=== PATIENT | female | born 1980 | race Caucasian/White ===

== ENCOUNTER 2019-10-13 07:06 | Inpatient (IN) | payer SELFPAY ==
[2019-10-13] MEDS ORDERED: Famotidine 20 MG/2 ML SDV IVPUSH ONE (07:22)
[2019-10-13] MEDS ORDERED: Aspirin 81 MG Tab.Chew CHEW ONE (07:22)
[2019-10-13] MEDS ORDERED: Ticagrelor 90 MG Tab PO ONE (07:22)
--- NOTE | 2019-10-13 07:22 | EDM.PDOC ---
ED HPI GENERAL MEDICAL PROBLEM - General Chief Complaint: Chest Pain Stated Complaint: right chest pain Time Seen by Provider: 10/13/19 07:15 Source of Information: Reports: Patient, Old Records ([facility] EMR. No paper hospital chart available.), Significant Other History Limitations: Reports: No Limitations - History of Present Illness INITIAL COMMENTS - FREE TEXT/NARRATIVE: The patient was brought to the emergency room via private automobile by her significant other for evaluation of 10/10 bilateral sharp chest pain radiating to her mid back region and arms bilaterally including bilateral arm paresthesias. She does admit to smoking methamphetamines and a cigarette prior to the above onset of symptoms. The patient denies any heart flutter, dizziness , orthostasis, orthopnea, diaphoresis, recent decreased exercise tolerance, or any other anginal-type symptoms. No recent history of abdominal pain, heartburn , nausea, diarrhea, melena, gross hematochezia, or any food intolerance, including fatty foods, etc., although she does have problems with chronic constipation with last good bowel movement about 2 days ago in a small bowel movement yesterday evening. She denies any gross hematuria, colic, UTI symptoms. The patient also denies any recent fever, cough, wheezing, dyspnea, etc.. Onset: Today, Sudden Onset Date: 10/13/19 Onset Time: 06:00 Duration: Constant, Getting Worse Location: Reports: Chest, Back, Upper Extremity, Left, Upper Extremity, Right, Radiates to (As above). Denies: Head, Face, Neck Quality: Reports: Sharp Severity: Severe Improves with: Reports: None Worsens with: Reports: None Context: Reports: Other (As above). 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 [No Known Home Meds] 07/08/15 [History] Past Medical History HEENT History: Reports: None. Denies: Allergic Rhinitis, Cataract, Glaucoma, Hard of Hearing, Impaired Vision, Macular Degeneration, Retinal Detachment Cardiovascular History: Reports: Cardiomyopathy, Other (See Below). Denies: Afib, Aneurysm, Arrhythmia, Blood Clots/VTE/DVT, CAD, High Cholesterol, Hypertension, TN, Syncope Other Cardiovascular History: Patient does not know her cholesterol status. 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 Respiratory History: Reports: None. Denies: Asthma, Bronchitis, Recurrent, COPD , Intubation, Previous, PE, Pneumothorax, Sleep Apnea, TB Gastrointestinal History: Reports: Chronic Constipation. Denies: Bowel Obstruction, Celiac Disease, Cholelithiasis, Chronic Diarrhea, Fecal Incontinence, Gastritis, GERD, GI Bleed, Hepatitis, Inflammatory Bowel Disease, Irritable Bowel Syndrome, Jaundice, Pancreatitis, PUD Genitourinary History: Reports: None. 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 Full term without complications during pregnancies or deliveries Musculoskeletal History: Reports: Arthritis, Osteoarthritis. Denies: Back Pain , Chronic, Fracture, Gout, Neck Pain, Chronic, RA, SLE Neurological History: Denies: Cerebral Aneurysms, Concussion, CVA, Headaches, Chronic, Head Trauma, Migraines, MS, Neuropathy, Peripheral, Parkinson's, Seizure, TIA Psychiatric History: Reports: Addiction, Anxiety, Depression. Denies: Abuse, Victim of, ADD, ADHD, Psych Hospitalization(s), PTSD, Suicide Attempt, Suicidal Ideation Endocrine/Metabolic History: Denies: Diabetes, Gestational, Diabetes, Type I, Diabetes, Type II, Diabetes Mellitus, Type 3c, Hypothyroidism, IDDM Hematologic History: Reports: Anemia, Iron Deficiency. Denies: Blood Transfusion(s) Immunologic History: Denies: AIDS, HIV, SLE Oncologic (Cancer) History: Reports: None. Denies: Basal Cell Carcinoma, Breast , Cervix, Colon, Hodgkin's Lymphoma, Leukemia, Lymphoma, Malignant Melanoma, Non -Hodgkin's Lymphoma, Squamous Cell Carcinoma Dermatologic History: Reports: None. Denies: Eczema, Psoriasis - Infectious Disease History Infectious Disease History: Reports: Chicken Pox. Denies: C-Difficile, Measles , Meningitis, Mononucleosis, Mumps, Pertussis (Whooping Cough), Rubella, Scarlet Fever, Shingles, TB, VRE - Past Surgical History Head Surgeries/Procedures: Reports: None HEENT Surgical History: Reports: Oral Surgery, Other (See Below). Denies: Adenoidectomy, Eye Surgery, Laser Surgery, LASIK, Myringotomy w Tube(s), Naso- Sinus Surgery, Tonsillectomy Other HEENT Surgeries/Procedures: Multiple teeth extractions. Cardiovascular Surgical History: Reports: None. Denies: Varicose Respiratory Surgical History: Reports: None. Denies: Thoracentesis GI Surgical History: Denies: Appendectomy, Cholecystectomy, Colonoscopy, EGD, Hernia, Abdominal, Hernia, Inguinal, Hernia Repair/Other Female Surgical History: Reports: None. Denies: Breast Biopsy, D&C, Hysterectomy, Salpingo-Oophorectomy, Tubal Ligation Endocrine Surgical History: Reports: None. Denies: Thyroid Biopsy Neurological Surgical History: Reports: None. Denies: C-Spine, Discectomy, Laminectomy, Sacral Spine, Spinal Fusion, Thoracic Spine, Vertebroplasty Musculoskeletal Surgical History: Reports: None. Denies: Arthroscopic Procedure , Carpal Tunnel, Ganglion Cyst, Joint Replacement, ORIF, Shoulder Surgery Oncologic Surgical History: Reports: None Dermatological Surgical History: Reports: None - Past Imaging History Past Imaging History: Reports: None Social & Family History - Family History HEENT: Reports: Cataract, Other (See Below). Denies: Glaucoma, Macular Degeneration, Retinal Detachment Other HEENT Family History: Mother with glaucoma and cataracts. Maternal grandparents and maternal uncles 2 with cataracts. Cardiac: Reports: CAD, Cardiomyopathy, Heart Failure, Hypertension, TN, Other ( See Below). Denies: Afib, Aneurysm, Arrhythmia, Blood Clots/VTE/DVT, Heart Murmur, High Cholesterol, Syncope Other Cardiac Family History: Maternal grandmother with fatal TN in her 60s. Maternal uncle with CHF in his 50s. Hypertension in mother and maternal uncles 2. Respiratory: Reports: None. Denies: Asthma, COPD, PE, Pneumothorax, Sleep Apnea GI: Reports: Chronic Constipation, Other (See Below). Denies: Celiac Disease, Cholelithiasis, Colon Polyps, GERD, GI bleed, Inflammatory Bowel Disease, Irritable Bowel Syndrome, PUD Other GI Family History: Mother with constipation. : Reports: None. Denies: Renal Calculus, Renal Disease/Insufficiency OBGYN: Reports: None. Denies: Endometriosis, Fibroids, Recurrent Spontaneous Musculoskeletal: Reports: SLE. Denies: Gout, RA Other Musculoskeletal Family History: Mother with SLE. Neurological: Reports: CVA, Other (See Below). Denies: Alzheimers Disease, Cerebral Aneurysms, Dementia, Migraines, MS, Parkinson's, Seizure, TIA Other Neurological Family History: Maternal grandfather with CVA fatal in his 80s. Psychiatric: Reports: Anxiety, Depression, Other (See Below). Denies: Abuse, Victim of, ADD, ADHD, Psych Hospitalization(s), PTSD, Suicide Attempt Other Psychiatric Family History: Mother with anxiety depression disorder. Endocrine/Metabolic: Reports: None. Denies: Diabetes, Gestational, Diabetes, Type I, Diabetes, type II, Diabetes Mellitus, Type 3c, Hypothyroidism, IDDM Hematologic: Reports: SLE, Other (See Below). Denies: Anemia Other Hematologic Family History: Mother with SLE. Immunologic: Reports: SLE, Other (See Below). Denies: AIDS, HIV Other Immunologic Family History: Mother with SLE. Dermatologic: Reports: Eczema. Denies: Psoriasis Other Dermatologic Family History: Maternal uncle with eczema. Oncologic: Denies: Cervix, Colon, Hodgkin's Lymphoma, Leukemia, Lymphoma, Non- Hodgkin's Lymphoma, Ovarian, Skin, Uterine - Tobacco Use Smoking Status *Q: Current Every Day Smoker Tobacco Use Within Last Twelve Months: Cigarettes Years of Tobacco use: 21 Packs/Tins Daily: 2 Packs/Tins Daily Comment: Currently smoking cigars. Used Tobacco, but Quit: No Smoking Cessation Information Provided To Patient: Yes Second Hand Smoke Exposure: Yes Source of Second Hand Smoke Exposure: Significant other Second Hand Smoke Education Provided: Yes - Caffeine Use Caffeine Use: Reports: Soda (4 sodas per day). Denies: Coffee, Energy Drinks, Tea - Alcohol Use Alcohol Use History: Yes Days Per Week of Alcohol Use: 0 Number of Drinks Per Day Comment: History of alcohol abuse since age 18 with no use since February 2018. Alcohol Use in Last Twelve Months: No - Recreational Drug Use Recreational Drug Use: Yes Drug Use in Last 12 Months: Yes Recreational Drug Type: Reports: Amphetamines (Speed), Methamphetamine, Other ( see below). Denies: Heroin, LSD (Acid), Marijuana/Hashish, Oxycodone Other Recreational Drug Type: Amphetamine use started in her 20s. Recreational Drug Route: Reports: Inhaled - Living Situation & Occupation Living situation: Reports: with Significant Other (And maternal uncle and mother.) Occupation: Unemployed ED ROS GENERAL - Review of Systems Review Of Systems: Comprehensive ROS is negative, except as noted in HPI. ED EXAM, GENERAL - Physical Exam Exam: See Below Exam Limited By: No Limitations General Appearance: Alert, WD/WN, No Apparent Distress, Anxious (Moderate to severe) Eye Exam: Bilateral Eye: EOMI, Normal Fundi, Normal Inspection (No nystagmus), PERRL Ears: Normal External Exam, Normal Canal, Hearing Grossly Normal, Normal TMs Nose: Normal Inspection, Normal Mucosa, No Blood Throat/Mouth: Normal Lips, Normal Gums, Normal Oropharynx, Normal Voice, No Airway Compromise. No: Normal Teeth (Complete absent dentition with exception of one anterior right lower tooth broken into the gumline with no abscess present.), Dysphagia, Perioral Cyanosis Head: Atraumatic, Normocephalic. No: Facial Swelling, Facial Tenderness, Sinus Tenderness Neck: Normal Inspection, Supple, Non-Tender, Full Range of Motion. No: Carotid Bruit, Lymphadenopathy (L), Lymphadenopathy (R), Thyromegaly Respiratory/Chest: No Respiratory Distress, Lungs Clear, Normal Breath Sounds, No Accessory Muscle Use, Chest Non-Tender. No: Pleural Rub, Retractions Cardiovascular: Normal Peripheral Pulses, Regular Rate, Rhythm, No Edema, No Gallop, No JVD, No Murmur, No Rub. No: Gallop/S3, Gallop/S4, Friction Rub Peripheral Pulses: 2+: Radial (L), Radial (R), Dorsalis Pedis (L), Dorsalis Pedis (R) GI/Abdominal: Normal Bowel Sounds, Soft, Non-Tender, No Organomegaly, No Distention, No Abnormal Bruit, No Mass, Pelvis Stable. No: Guarding (Female) Exam: Deferred Rectal (Female) Exam: Deferred Back Exam: Normal Inspection, Full Range of Motion. No: CVA Tenderness (L), CVA Tenderness (R), Muscle Spasm Extremities: Normal Inspection, Normal Range of Motion, Non-Tender, No Pedal Edema, Normal Capillary Refill, Other (Hallux valgus bilaterally). No: Blata's Sign Neurological: Alert, Oriented, CN II-XII Intact, Normal Cognition, Normal Gait, Normal Reflexes (Negative Babinski's), No Motor/Sensory Deficits Psychiatric: Anxious (Moderate to severe), Depressed Mood (Moderate with adequate eye contact) Skin Exam: Warm, Dry, Intact, Normal Color, No Rash. No: Diaphoretic, Ecchymosis, Petechiae, Wound/Incision Lymphatic: No Adenopathy EKG INTERPRETATION EKG Date: 10/13/19 Time: 07:43 Rhythm: Other (Sinus bradycardia with occasional PAC) Rate (Beats/Min): 55 [place]: Normal (Neutral) P-Wave: Present QRS: Normal (0.09 seconds) ST-T: Normal (T wave inversion in lead V1) QT: Normal TX/PQ Interval: 0.11 seconds representing a short TX interval with no delta waves noted. Poor R-wave progression in the anterior leads. Comparison: NA - No Prior EKG EKG Interpretation Comments: 1. No acute ischemic changes 2. Sinus bradycardia with PACs 3. Short TX interval Course - Vital Signs Last Recorded V/S: Last Vital Signs Temp 36.3 C 10/13/19 07:12 Pulse 65 10/13/19 07:49 Resp 12 10/13/19 07:49 BP 170/88 H 10/13/19 07:49 Pulse Ox 100 10/13/19 07:49 Vital Signs - 24 hr 10/13/19 10/13/19 10/13/19 07:12 07:22 07:30 Temperature [ 36.3 C Temporal] Pulse, 90 Peripheral [ Left Pulse Oximetry] Respiratory 25 H Rate Blood Pressure 181/104 H Blood Pressure 181/104 H [Left Upper Arm ] O2 Sat by Pulse 100 Oximetry O2 Sat by Pulse 100 Oximetry [Room Air] 10/13/19 07:49 Temperature [ Temporal] Pulse, 65 Peripheral [ Left Pulse Oximetry] Respiratory 12 Rate Blood Pressure Blood Pressure 170/88 H [Left Upper Arm ] O2 Sat by Pulse 100 Oximetry O2 Sat by Pulse Oximetry [Room Air] - Orders/Labs/Meds Orders: Active Orders 24 hr Category Date Time Status Cardiac Monitoring [RC] . DIRECTED Care 10/13/19 07:22 Active EKG Documentation Completion [RC] ASDIRECTED Care 10/13/19 07:22 Active Oxygen Therapy, ED [RC] CONTINUOUS Care 10/13/19 07:22 Active Peripheral IV Care [RC] . DIRECTED Care 10/13/19 07:22 Active Pulse Oximetry [RC] CONTINUOUS Care 10/13/19 07:22 Active Up With Assistance [RC] PFP Care 10/13/19 07:22 Active Vital Signs [RC] PFP Care 10/13/19 07:22 Active Nothing per Oral Now Diet [DIET] Diet 10/13/19 Breakfast Active Chest 1V Frontal [CR] Stat Exams 10/13/19 07:22 Ordered LIPID PANEL [CHEM] Routine Lab 10/13/19 08:07 Ordered Nitroglycerin [Nitrostat] Med 10/13/19 07:23 Stat 0.4 mg SL ONETIME STA Sodium Chloride 0.9% [Saline Flush] Med 10/13/19 07:22 Active 10 ml FLUSH ASDIRECTED PRN Obtain Past Medical Record [OM.PC] Urgent Oth 10/13/19 07:22 Active Peripheral IV Insertion Adult [OM.PC] Stat Oth 10/13/19 07:22 Ordered Resuscitation Status Stat Resus Stat 10/13/19 07:22 Ordered Medication Orders Ceftriaxone Sodium 1 gm/ (Sodium Chloride) 100 mls @ 200 mls/hr IV ONETIME ONE Stop: 10/13/19 08:49 Last Admin: 10/13/19 08:29 Dose: 200 mls/hr Magnesium Sulfate 2 gm/ Premix 50 mls @ 50 mls/hr IV ONETIME ONE Stop: 10/13/19 09:19 Nitroglycerin (Nitrostat) 0.4 mg SL ONETIME STA Stop: 10/14/19 07:24 Last Admin: 10/13/19 07:30 Dose: 0.4 mg Sodium Chloride (Saline Flush) 10 ml FLUSH ASDIRECTED PRN PRN Reason: Keep Vein Open Last Admin: 10/13/19 08:11 Dose: 10 ml Labs: Laboratory Tests 10/13/19 10/13/19 10/13/19 Range/Units 07:24 07:40 07:40 WBC 14.7 H (4.0-10.2) K/uL RBC 4.68 (3.77-5.09) M/uL Hgb 11.7 D (11.7-15.5) g/dL Hct 35.9 (34.0-46.0) % MCV 76.7 L D (84.0-98.0) fL MCH 25.0 L (28.2-33.3) pg MCHC 32.6 (31.7-36.0) g/dL RDW 15.0 H (11.2-14.1) % Plt Count 612 H D (150-350) K/uL Neut % (Auto) 74.6 (45.0-80.0) % Lymph % (Auto) 21.5 (10.0-50.0) % [place] % (Auto) 3.1 (2.0-14.0) % Eos % (Auto) 0.6 (0.0-5.0) % Baso % (Auto) 0.2 (0.0-2.0) % Neut # (Auto) 10.97 H (1.40-7.00) K/uL Lymph # (Auto) 3.17 (0.50-3.50) K/uL [place] # (Auto) 0.46 (0.00-1.00) K/uL Eos # (Auto) 0.09 (0.00-0.50) K/uL Baso # (Auto) 0.03 (0.00-0.20) K/uL PT 10.8 (9.5-12.0) SEC INR 1.0 APTT 32.0 H (21.0-31.3) SEC D-Dimer, Quantitative 773 H (0-400) ng/mL Sodium (136-145) mmol/L Potassium (3.5-5.1) mmol/L Chloride (98-107) mmol/L Carbon Dioxide (21.0-32.0) mmol/L BUN (7-18) mg/dL Creatinine (0.51-1.17) mg/dL Est Cr Clr Drug Dosing mL/min Estimated GFR (MDRD) mL/min Glucose (74-106) mg/dL Hemoglobin A1c (4.3-5.7) % Lactic Acid (0.4-2.0) mmol/L Uric Acid (2.6-7.2) mg/dL Calcium (8.5-10.1) mg/dL Magnesium (1.8-2.4) mg/dL Total Bilirubin (0.2-1.0) mg/dL AST (15-37) U/L ALT (12-78) U/L Alkaline Phosphatase (46-116) IU/L Creatine Kinase (26-308) U/L Creatine Kinase Index (0.0-2.5) % CK-MB (CK-2) (0.00-3.60) ng/mL Troponin I (0.000-0.056) ng/mL NT-Pro-B Natriuret Pep (0-125) pg/mL Total Protein (6.4-8.2) g/dL Albumin (3.4-5.0) g/dL Cholesterol (100-200) mg/dL HDL Cholesterol (40-60) mg/dL TSH, Ultra Sensitive (0.358-3.740) mIU/mL HCG, Qual (NEGATIVE) Ethyl Alcohol (0.000-0.080) g/dL 10/13/19 10/13/19 10/13/19 Range/Units 07:40 07:40 07:40 WBC (4.0-10.2) K/uL RBC (3.77-5.09) M/uL Hgb (11.7-15.5) g/dL Hct (34.0-46.0) % MCV (84.0-98.0) fL MCH (28.2-33.3) pg MCHC (31.7-36.0) g/dL RDW (11.2-14.1) % Plt Count (150-350) K/uL Neut % (Auto) (45.0-80.0) % Lymph % (Auto) (10.0-50.0) % [place] % (Auto) (2.0-14.0) % Eos % (Auto) (0.0-5.0) % Baso % (Auto) (0.0-2.0) % Neut # (Auto) (1.40-7.00) K/uL Lymph # (Auto) (0.50-3.50) K/uL [place] # (Auto) (0.00-1.00) K/uL Eos # (Auto) (0.00-0.50) K/uL Baso # (Auto) (0.00-0.20) K/uL PT (9.5-12.0) SEC INR APTT (21.0-31.3) SEC D-Dimer, Quantitative (0-400) ng/mL Sodium 139 (136-145) mmol/L Potassium 2.8 L* (3.5-5.1) mmol/L Chloride 98 (98-107) mmol/L Carbon Dioxide 23.6 (21.0-32.0) mmol/L BUN 6 L (7-18) mg/dL Creatinine 0.61 (0.51-1.17) mg/dL Est Cr Clr Drug Dosing 99.46 mL/min Estimated GFR (MDRD) > 60 mL/min Glucose 177 H (74-106) mg/dL Hemoglobin A1c (4.3-5.7) % Lactic Acid 3.2 H (0.4-2.0) mmol/L Uric Acid 3.7 (2.6-7.2) mg/dL Calcium 9.4 (8.5-10.1) mg/dL Magnesium 1.3 L (1.8-2.4) mg/dL Total Bilirubin 0.2 (0.2-1.0) mg/dL AST 11 L (15-37) U/L ALT 11 L (12-78) U/L Alkaline Phosphatase 141 H (46-116) IU/L Creatine Kinase 32 (26-308) U/L Creatine Kinase Index 0.9 (0.0-2.5) % CK-MB (CK-2) 0.30 (0.00-3.60) ng/mL Troponin I 0.000 (0.000-0.056) ng/mL NT-Pro-B Natriuret Pep 202 H (0-125) pg/mL Total Protein 8.8 H (6.4-8.2) g/dL Albumin 3.5 (3.4-5.0) g/dL Cholesterol (100-200) mg/dL HDL Cholesterol (40-60) mg/dL TSH, Ultra Sensitive 0.174 L (0.358-3.740) mIU/mL HCG, Qual Negative (NEGATIVE) Ethyl Alcohol 0.000 (0.000-0.080) g/dL 12/25/19 12/25/19 Range/Units 07:40 07:40 WBC (4.0-10.2) K/uL RBC (3.77-5.09) M/uL Hgb (11.7-15.5) g/dL Hct (34.0-46.0) % MCV (84.0-98.0) fL MCH (28.2-33.3) pg MCHC (31.7-36.0) g/dL RDW (11.2-14.1) % Plt Count (150-350) K/uL Neut % (Auto) (45.0-80.0) % Lymph % (Auto) (10.0-50.0) % [place] % (Auto) (2.0-14.0) % Eos % (Auto) (0.0-5.0) % Baso % (Auto) (0.0-2.0) % Neut # (Auto) (1.40-7.00) K/uL Lymph # (Auto) (0.50-3.50) K/uL [place] # (Auto) (0.00-1.00) K/uL Eos # (Auto) (0.00-0.50) K/uL Baso # (Auto) (0.00-0.20) K/uL PT (9.5-12.0) SEC INR APTT (21.0-31.3) SEC D-Dimer, Quantitative (0-400) ng/mL Sodium (136-145) mmol/L Potassium (3.5-5.1) mmol/L Chloride (98-107) mmol/L Carbon Dioxide (21.0-32.0) mmol/L BUN (7-18) mg/dL Creatinine (0.51-1.17) mg/dL Est Cr Clr Drug Dosing mL/min Estimated GFR (MDRD) mL/min Glucose (74-106) mg/dL Hemoglobin A1c 5.3 (4.3-5.7) % Lactic Acid (0.4-2.0) mmol/L Uric Acid (2.6-7.2) mg/dL Calcium (8.5-10.1) mg/dL Magnesium (1.8-2.4) mg/dL Total Bilirubin (0.2-1.0) mg/dL AST (15-37) U/L ALT (12-78) U/L Alkaline Phosphatase (46-116) IU/L Creatine Kinase (26-308) U/L Creatine Kinase Index (0.0-2.5) % CK-MB (CK-2) (0.00-3.60) ng/mL Troponin I (0.000-0.056) ng/mL NT-Pro-B Natriuret Pep (0-125) pg/mL Total Protein (6.4-8.2) g/dL Albumin (3.4-5.0) g/dL Cholesterol 202 H (100-200) mg/dL HDL Cholesterol 38 L (40-60) mg/dL TSH, Ultra Sensitive (0.358-3.740) mIU/mL HCG, Qual (NEGATIVE) Ethyl Alcohol (0.000-0.080) g/dL Meds: Medications Generic Name Dose Route Start Last Admin Trade Name Freq PRN Reason Stop Dose Admin Ceftriaxone Sodium 1 gm/ 100 mls @ 200 mls/hr 10/13/19 08:20 10/13/19 08:29 Sodium Chloride IV 10/13/19 08:49 200 mls/hr ONETIME ONE Administration Magnesium Sulfate 2 gm/ Premix 50 mls @ 50 mls/hr 10/13/19 08:20 IV 10/13/19 09:19 ONETIME ONE Nitroglycerin 0.4 mg 10/13/19 07:23 10/13/19 07:30 Nitrostat SL 10/14/19 07:24 0.4 mg ONETIME STA Administration Sodium Chloride 10 ml 10/13/19 07:22 10/13/19 08:11 Saline Flush FLUSH 10 ml ASDIRECTED PRN Administration Keep Vein Open Discontinued Medications Generic Name Dose Route Start Last Admin Trade Name Freq PRN Reason Stop Dose Admin Aspirin 324 mg 10/13/19 07:22 10/13/19 07:30 Aspirin CHEW 10/13/19 07:23 324 mg ONETIME ONE Administration Famotidine 40 mg 10/13/19 07:22 10/13/19 07:39 Pepcid IVPUSH 10/13/19 07:23 40 mg ONETIME ONE Administration Iopamidol 100 ml 10/13/19 08:33 Isovue-370 (76%) IVPUSH 10/13/19 08:34 ONETIME STA Lorazepam 0.5 mg 10/13/19 07:23 10/13/19 07:31 Ativan IVPUSH 10/13/19 07:24 0.5 mg ONETIME ONE Administration Magnesium Citrate 0 ml 10/13/19 08:22 10/13/19 08:29 Citrate Of Magnesia PO 10/13/19 08:23 296 ml ONETIME ONE Administration Morphine Sulfate 2 mg 10/13/19 08:00 10/13/19 08:03 Morphine IVPUSH 10/13/19 08:01 2 mg ONETIME ONE Administration Ondansetron HCl 4 mg 10/13/19 08:00 10/13/19 08:03 Zofran IVPUSH 10/13/19 08:01 4 mg ONETIME ONE Administration Polyethylene Glycol 17 gm 10/13/19 08:22 10/13/19 08:30 Miralax PO 10/13/19 08:23 17 gm ONETIME ONE Administration Potassium Chloride 40 meq 10/13/19 08:21 10/13/19 08:29 Klor-Con M20 PO 10/13/19 08:22 40 meq ONETIME ONE Administration Ticagrelor 180 mg 10/13/19 07:22 10/13/19 07:31 Brilinta PO 10/13/19 07:23 180 mg ONETIME ONE Administration - Radiology Interpretation Free Text/Narrative:: monitor technician shows sinus rhythm averaging in the 60s to 70s with pulses ranging in the 50s to low 100s with anxiety component. Note occasional PACs and PVCs. Chest x-ray, portable, shows borderline pulmonary obstructive disease with mild prominence of the proximal aortic arch but no cardiomegaly, CHF, pulmonary infiltrates, pneumothorax, etc. Note moderate bowel gaseous distention from limited view with no evidence of free air or fluid levels. Departure - Departure Time of Disposition: 08:35 Disposition: Still A Patient 30 Condition: Good Clinical Impression: Chest pain, PAC (premature atrial contraction), PVCs (premature ventricular contractions), Tobacco abuse counseling, Illicit drug use, continuous, Osteoarthritis, Mixed anxiety depressive disorder, Constipation, Hypokalemia, Hyperglycemia, Hypomagnesemia, D-dimer, elevated, Elevated lactic acid level, Elevated blood pressure reading Sepsis Event Note - Evaluation Sepsis Screening Result: No Definite Risk - Focused Exam Vital Signs: Vital Signs Temp Pulse Resp BP BP Pulse Ox Pulse Ox 10/13/19 07:49 65 12 170/88 H 100 10/13/19 07:30 181/104 H 10/13/19 07:22 100 10/13/19 07:12 36.3 C 90 25 H 181/104 H 100 Date Exam was Performed: 10/13/19 Time Exam was Performed: 08:34 - Problem List & Annotations (1) Chest pain SNOMED Code(s): 34883435 Code(s): R07.9 - CHEST PAIN, UNSPECIFIED Status: Acute Priority: High Current Visit: No Onset Date: 10/13/19 Annotation/Comment:: Chest pain protocol initiated in the emergency room. Note strong anxiety component to patient's symptoms. Initiate standard rule out TN orders with cardiology consultation depending on her clinical course. Dr. Armando assumes care later this morning. 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 Qualifiers: Chest pain type: precordial pain Qualified Code(s): R07.2 - Precordial pain (2) Illicit drug use, continuous SNOMED Code(s): 283013710 Code(s): F19.90 - OTHER PSYCHOACTIVE SUBSTANCE USE, UNSPECIFIED, UNCOMPLICATED Status: Chronic Priority: Medium Current Visit: No Annotation/Comment:: Note methamphetamine use earlier this morning with previous use about 6 months ago per history from the patient and her significant other. Consider referral for psychiatric treatment, including drug rehabilitation program, etc. (3) Mixed anxiety depressive disorder SNOMED Code(s): 040482877 Code(s): F41.8 - OTHER SPECIFIED ANXIETY DISORDERS Status: Chronic Priority: High Current Visit: No Annotation/Comment:: Poor control based on today's evaluation. Increased stressors today secondary to her son spending the holidays with her ex-. Note previous history of alcohol abuse with current illicit drug use. IV Ativan given in the emergency room. Ativan should likely not be given at discharge secondary to patient's substance abuse history as above. (4) Osteoarthritis SNOMED Code(s): 750973560 Code(s): M19.90 - UNSPECIFIED OSTEOARTHRITIS, UNSPECIFIED SITE Status: Chronic Priority: Medium Current Visit: No Annotation/Comment:: Stable moderate by history Qualifiers: Osteoarthritis location: multiple joints Osteoarthritis type: primary Qualified Code(s): M15.0 - Primary generalized (osteo)arthritis (5) PAC (premature atrial contraction) SNOMED Code(s): 767642838 Code(s): I49.1 - ATRIAL PREMATURE DEPOLARIZATION Status: Acute Priority: High Current Visit: No Onset Date: 10/13/19 Annotation/Comment:: Observe for now. Note no beta blockers given during emergency room care. Note sinus bradycardia and current hypokalemia. (6) PVCs (premature ventricular contractions) SNOMED Code(s): 54948123 Code(s): I49.3 - VENTRICULAR PREMATURE DEPOLARIZATION Status: Acute Priority: High Current Visit: No Onset Date: 10/13/19 Annotation/Comment: : As above. (7) Tobacco abuse counseling SNOMED Code(s): 893128034, 836442267, 243805719 Code(s): Z71.6 - TOBACCO ABUSE COUNSELING Status: Chronic Priority: Medium Current Visit: No Annotation/Comment:: The patient and her were strongly encouraged to discontinue tobacco use with tobacco cessation information to be provided at discharge. (8) Constipation SNOMED Code(s): 18259799 Code(s): K59.00 - CONSTIPATION, UNSPECIFIED Status: Acute Priority: Medium Current Visit: No Annotation/Comment:: Long history of constipation. Note significant bowel gas and today's x-ray. Continue abdominal x-rays depending on her clinical course. Magnesium citrate and MiraLAX given in the emergency room. Qualifiers: Constipation type: slow transit constipation Qualified Code(s): K59.01 - Slow transit constipation (9) Hypokalemia SNOMED Code(s): 11461399 Code(s): E87.6 - HYPOKALEMIA Status: Acute Priority: High Current Visit : No Onset Date: 10/13/19 Annotation/Comment:: Potassium chloride initiated in the emergency room. Note that IV Pepcid was given as GI prophylaxis early after patient's arrival. Continue potassium supplementation during hospitalization especially in light of required MiraLAX and potassium citrate as below. No recent diarrhea, emesis, etc. by patient history. (10) D-dimer, elevated SNOMED Code(s): 678077589 Code(s): R79.89 - OTHER SPECIFIED ABNORMAL FINDINGS OF BLOOD CHEMISTRY Status: Acute Priority: High Current Visit: Yes Onset Date: 10/13/19 Annotation/Comment:: CTA of the chest ordered using PE protocol with results pending at time of transfer patient's care to Dr. Armando. Consider venous Doppler studies of the lower extremities prior to discharge. (11) Elevated blood pressure reading SNOMED Code(s): 37306862 Code(s): R03.0 - ELEVATED BLOOD-PRESSURE READING, W/O DIAGNOSIS OF HTN Status: Acute Priority: High Current Visit: Yes Onset Date: 10/13/19 Annotation/Comment:: Previous history of hypertension. Anxiety component. Continue to observe closely during this hospitalization. (12) Hyperglycemia SNOMED Code(s): 99590184 Code(s): R73.9 - HYPERGLYCEMIA, UNSPECIFIED Status: Acute Priority: Medium Current Visit: Yes Onset Date: 10/13/19 Annotation/Comment:: Nonfasting with the patient only having soda this morning. Glycosylated hemoglobin and fasting lipid profile were drawn in the emergency room. (13) Hypomagnesemia SNOMED Code(s): 867666618 Code(s): E83.42 - HYPOMAGNESEMIA Status: Acute Priority: High Current Visit: Yes Onset Date: 10/13/19 Annotation/Comment:: Initiated magnesium sulfate IV infusion in the emergency room with further IV and/or oral supplementation depending on her clinical course. (14) Elevated lactic acid level SNOMED Code(s): 9717307 Code(s): R79.89 - OTHER SPECIFIED ABNORMAL FINDINGS OF BLOOD CHEMISTRY Status: Acute Priority: High Current Visit: Yes Onset Date: 10/13/19 Annotation/Comment:: No clinical evidence of sepsis. Recommend repeating lactic acid level in 3 hours. IV Rocephin initiated in the emergency room. Attempt to obtain UA with culture and sensitivity. Initiate IV fluids depending on her clinical course. No hypotension, etc. - Problem List Review Problem List Initiated/Reviewed/Updated: Yes - My Orders Last 24 Hours: My Active Orders 10/13/19 07:22 Cardiac Monitoring [RC] . DIRECTED EKG Documentation Completion [RC] ASDIRECTED Oxygen Therapy, ED [RC] CONTINUOUS Peripheral IV Care [RC] . DIRECTED Pulse Oximetry [RC] CONTINUOUS Up With Assistance [RC] PFP Vital Signs [RC] PFP Chest 1V Frontal [CR] Stat Sodium Chloride 0.9% [Saline Flush] 10 ml FLUSH ASDIRECTED PRN Obtain Past Medical Record [OM.PC] Urgent Peripheral IV Insertion Adult [OM.PC] Stat Resuscitation Status Stat 10/13/19 07:23 Nitroglycerin [Nitrostat] 0.4 mg SL ONETIME STA 10/13/19 08:07 LIPID PANEL [CHEM] Routine 10/13/19 Breakfast Nothing per Oral Now Diet [DIET] - Assessment/Plan Admission H&P: Please use this note as an admission H&P Last 24 Hours: My Active Orders 10/13/19 07:22 Cardiac Monitoring [RC] . DIRECTED EKG Documentation Completion [RC] ASDIRECTED Oxygen Therapy, ED [RC] CONTINUOUS Peripheral IV Care [RC] . DIRECTED Pulse Oximetry [RC] CONTINUOUS Up With Assistance [RC] PFP Vital Signs [RC] PFP Chest 1V Frontal [CR] Stat Sodium Chloride 0.9% [Saline Flush] 10 ml FLUSH ASDIRECTED PRN Obtain Past Medical Record [OM.PC] Urgent Peripheral IV Insertion Adult [OM.PC] Stat Resuscitation Status Stat 10/13/19 07:23 Nitroglycerin [Nitrostat] 0.4 mg SL ONETIME STA 10/13/19 08:07 LIPID PANEL [CHEM] Routine 10/13/19 Breakfast Nothing per Oral Now Diet [DIET] Assessment:: As above. Plan: As above. Extensive precautions were given to the patient and her significant other, who are in agreement with the treatment plan. The patient's condition is stable enough for observation status and general supervision. Patient care was transferred to Dr. Tr hsieh prior to planned placement of the patient in observation status.
[2019-10-13] MEDS ORDERED: LORazepam 2 MG/ML SDV IVPUSH ONE (07:23)
[2019-10-13] MEDS ORDERED: Nitroglycerin 0.4 MG Tab.SL SL STA (07:23)
[2019-10-13] MEDS ORDERED: Ondansetron 4 MG/2 ML SDV IVPUSH ONE (08:00)
[2019-10-13] MEDS ORDERED: Morphine 2 MG/ML Syringe IVPUSH ONE (08:00)
[2019-10-13 08:09] LABS: CHLORIDE,CL 98 mmol/L (98-107); SODIUM,NA 139 mmol/L (136-145)
[2019-10-13] MEDS: Sodium Chloride 0.9% 10 ML Syringe FLUSH PRN ×2 (08:11→10:26)
[2019-10-13] MEDS ORDERED: cefTRIAXone 1 GM in Sodium Chloride 0.9% 100 ML IV ONE (08:20)
[2019-10-13] MEDS ORDERED: Magnesium Sulfate/Water 2 GM in Premix Bag 1 BAG IV ONE (08:20)
[2019-10-13] MEDS ORDERED: Potassium Chloride 20 MEQ Tab.ER PO ONE ×3 (08:21→15:00)
[2019-10-13] MEDS ORDERED: Magnesium Citrate Solution 296 ML Bottle PO ONE (08:22)
[2019-10-13] MEDS ORDERED: Polyethylene Glycol 3350 Powder 17 GM Packet PO ONE (08:22)
[2019-10-13 08:29] LABS: HEMOGLOBIN A1C 5.3 % (4.3-5.7)
[2019-10-13] MEDS ORDERED: Iopamidol 755 Mg/ML 100 ML Bottle IVPUSH STA (08:33)
[2019-10-13] MEDS ORDERED: Ondansetron 4 MG/2 ML SDV IVPUSH PRN (09:31)
[2019-10-13] MEDS ORDERED: LORazepam 2 MG/ML SDV IV PRN (09:31)
[2019-10-13] MEDS ORDERED: Sodium Chloride 0.9% 1,000 ML IV SCH (09:45)
[2019-10-13 10:02] LABS: BARBITURATE SCREEN,URINE NEGATIVE (NEGATIVE); BENZODIAZEPINES SCREEN,URINE NEGATIVE (NEGATIVE); EDDP,URINE SCREEN NEGATIVE (NEGATIVE); TCA SCREEN,URINE NEGATIVE (NEGATIVE); THC SCREEN,URINE 50 NG/ML NEGATIVE (NEGATIVE)
[2019-10-13] MEDS: Acetaminophen 325 MG Tab PO PRN (12:06)
[2019-10-13 17:10] LABS: CHLORIDE,CL 104 mmol/L (98-107); SODIUM,NA 142 mmol/L (136-145)
[2019-10-13] MEDS ORDERED: Sodium Chloride 0.9% 1,000 ML IV ONE (19:25)
[2019-10-13] MEDS: Sulfamethoxazole/Trimethoprim 800-160 MG Tab PO SCH (20:07)
[2019-10-14] MEDS: cefTRIAXone 1 GM in Sodium Chloride 0.9% 100 ML IV SCH (07:34)
[2019-10-14] MEDS: Sulfamethoxazole/Trimethoprim 800-160 MG Tab PO SCH ×2 (07:34→17:10)
[2019-10-14 08:15] LABS: CHLORIDE,CL 102 mmol/L (98-107); SODIUM,NA 141 mmol/L (136-145)
[2019-10-14] MEDS: Enoxaparin 40 MG/0.4 ML Syringe SUBCUT SCH (11:36)
[2019-10-14] MEDS: Nicotine 21 MG/24 Hr Patch TRDERM SCH (11:36)
[2019-10-14] MEDS ORDERED: Sodium Chloride 0.9% 1,000 ML IV ONE (13:12)
--- NOTE | 2019-10-14 13:24 | PCM.PN ---
- General Info Date of Service: 10/14/19 Admission Dx/Problem (Free Text): Chest pain/low K and Mg. Found to have UTI after admission to floor. Recent Meth ingestion. Subjective Update: Patient feels overall better today. Intermittent bilateral low back pain. Afebrile. - Review of Systems General: Reports: No Symptoms. Denies: Fever, Fatigue, Malaise, Chills, Night Sweats HEENT: Reports: No Symptoms Pulmonary: Reports: No Symptoms. Denies: Shortness of Breath, Pleuritic Chest Pain, Cough, Sputum, Hemoptysis, Wheezing Cardiovascular: Reports: No Symptoms. Denies: Chest Pain, Palpitations, Lightheadedness Gastrointestinal: Reports: No Symptoms. Denies: Abdominal Pain, Diarrhea, Nausea, Vomiting Genitourinary: Reports: No Symptoms Musculoskeletal: Reports: Back Pain Skin: Reports: No Symptoms Neurological: Reports: No Symptoms Psychiatric: Reports: No Symptoms - Patient Data Vitals - Most Recent: Last Vital Signs Temp 36.6 C 10/14/19 11:03 Pulse 95 10/14/19 11:03 Resp 18 10/14/19 11:03 BP 149/99 H 10/14/19 11:03 Pulse Ox 98 10/14/19 11:03 Weight - Most Recent: 55.61 kg I&O - Last 24 Hours: Intake & Output 10/13/19 10/14/19 10/14/19 22:59 06:59 14:59 Intake Total 1745 2225 1720 Output Total 650 1800 1450 Balance 1095 425 270 Lab Results Last 24 Hours: Laboratory Results - last 24 hr 10/13/19 10/13/19 10/14/19 Range/Units 07:40 16:50 07:20 WBC (4.0-10.2) K/uL RBC (3.77-5.09) M/uL Hgb (11.7-15.5) g/dL Hct (34.0-46.0) % MCV (84.0-98.0) fL MCH (28.2-33.3) pg MCHC (31.7-36.0) g/dL RDW (11.2-14.1) % Plt Count (150-350) K/uL Neut % (Auto) (45.0-80.0) % Lymph % (Auto) (10.0-50.0) % [place] % (Auto) (2.0-14.0) % Eos % (Auto) (0.0-5.0) % Baso % (Auto) (0.0-2.0) % Neut # (Auto) (1.40-7.00) K/uL Lymph # (Auto) (0.50-3.50) K/uL [place] # (Auto) (0.00-1.00) K/uL Eos # (Auto) (0.00-0.50) K/uL Baso # (Auto) (0.00-0.20) K/uL Sodium 142 141 (136-145) mmol/L Potassium 3.7 3.8 (3.5-5.1) mmol/L Chloride 104 102 (98-107) mmol/L Carbon Dioxide 27.5 25.6 (21.0-32.0) mmol/L BUN 4 L 3 L (7-18) mg/dL Creatinine 0.57 0.64 (0.51-1.17) mg/dL Est Cr Clr Drug Dosing 116.69 103.93 mL/min Estimated GFR (MDRD) > 60 > 60 mL/min Glucose 113 H 87 (74-106) mg/dL Lactic Acid (0.4-2.0) mmol/L Calcium 8.1 L 8.9 (8.5-10.1) mg/dL Magnesium 2.9 H 2.2 (1.8-2.4) mg/dL Total Bilirubin 0.1 L (0.2-1.0) mg/dL AST 13 L (15-37) U/L ALT 11 L (12-78) U/L Alkaline Phosphatase 132 H (46-116) IU/L Troponin I 0.000 (0.000-0.056) ng/mL Total Protein 7.6 (6.4-8.2) g/dL Albumin 3.0 L (3.4-5.0) g/dL Triglycerides 97 (30-150) mg/dL LDL Cholesterol, Calc 145 H (0-100) mg/dL 10/14/19 10/14/19 Range/Units 07:20 07:20 WBC 9.5 (4.0-10.2) K/uL RBC 4.52 (3.77-5.09) M/uL Hgb 11.3 L (11.7-15.5) g/dL Hct 35.2 (34.0-46.0) % MCV 77.9 L (84.0-98.0) fL MCH 25.0 L (28.2-33.3) pg MCHC 32.1 (31.7-36.0) g/dL RDW 15.3 H (11.2-14.1) % Plt Count 656 H (150-350) K/uL Neut % (Auto) 63.5 (45.0-80.0) % Lymph % (Auto) 30.4 (10.0-50.0) % [place] % (Auto) 4.3 (2.0-14.0) % Eos % (Auto) 1.7 (0.0-5.0) % Baso % (Auto) 0.1 (0.0-2.0) % Neut # (Auto) 6.05 (1.40-7.00) K/uL Lymph # (Auto) 2.89 (0.50-3.50) K/uL [place] # (Auto) 0.41 (0.00-1.00) K/uL Eos # (Auto) 0.16 (0.00-0.50) K/uL Baso # (Auto) 0.01 (0.00-0.20) K/uL Sodium (136-145) mmol/L Potassium (3.5-5.1) mmol/L Chloride (98-107) mmol/L Carbon Dioxide (21.0-32.0) mmol/L BUN (7-18) mg/dL Creatinine (0.51-1.17) mg/dL Est Cr Clr Drug Dosing mL/min Estimated GFR (MDRD) mL/min Glucose (74-106) mg/dL Lactic Acid 4.9 H (0.4-2.0) mmol/L Calcium (8.5-10.1) mg/dL Magnesium (1.8-2.4) mg/dL Total Bilirubin (0.2-1.0) mg/dL AST (15-37) U/L ALT (12-78) U/L Alkaline Phosphatase (46-116) IU/L Troponin I (0.000-0.056) ng/mL Total Protein (6.4-8.2) g/dL Albumin (3.4-5.0) g/dL Triglycerides (30-150) mg/dL LDL Cholesterol, Calc (0-100) mg/dL Senthil Results Last 24 Hours: Microbiology 10/13/19 09:42 Urine Culture - Final Urine, Clean Catch Med Orders - Current: Current Medications Acetaminophen (Tylenol) 650 mg PO Q4H PRN PRN Reason: Pain (Mild 1-3)/fever Last Admin: 10/13/19 12:06 Dose: 650 mg Enoxaparin Sodium (Lovenox) 40 mg SUBCUT DAILY [facility] Last Admin: 10/14/19 11:36 Dose: 40 mg Ceftriaxone Sodium 1 gm/ (Sodium Chloride) 100 mls @ 200 mls/hr IV DAILY [facility] Last Admin: 10/14/19 07:34 Dose: 200 mls/hr Sodium Chloride (Normal Saline) 1,000 mls @ 200 mls/hr IV .BOLUS ONE Stop: 10/14/19 18:11 Lorazepam (Ativan) 1 mg IV Q6H PRN PRN Reason: Nausea/Vomiting Last Admin: 10/13/19 12:06 Dose: 1 mg Metoprolol Succinate (Toprol Xl) 25 mg PO DAILY [facility] Nicotine (Habitrol) 21 mg TRDERM DAILY [facility] Last Admin: 10/14/19 11:36 Dose: 21 mg Ondansetron HCl (Zofran) 4 mg IVPUSH Q6H PRN PRN Reason: Nausea/Vomiting Sodium Chloride (Saline Flush) 10 ml FLUSH ASDIRECTED PRN PRN Reason: Keep Vein Open Last Admin: 10/13/19 10:26 Dose: 10 ml Trimethoprim/Sulfamethoxazole (Septra Ds) 1 tab PO BID [facility] Last Admin: 10/14/19 07:34 Dose: 1 tab Discontinued Medications Aspirin (Aspirin) 324 mg CHEW ONETIME ONE Stop: 10/13/19 07:23 Last Admin: 10/13/19 07:30 Dose: 324 mg Famotidine (Pepcid) 40 mg IVPUSH ONETIME ONE Stop: 10/13/19 07:23 Last Admin: 10/13/19 07:39 Dose: 40 mg Ceftriaxone Sodium 1 gm/ (Sodium Chloride) 100 mls @ 200 mls/hr IV ONETIME ONE Stop: 10/13/19 08:49 Last Admin: 10/13/19 08:29 Dose: 200 mls/hr Magnesium Sulfate 2 gm/ Premix 50 mls @ 50 mls/hr IV ONETIME ONE Stop: 10/13/19 09:19 Last Admin: 10/13/19 09:06 Dose: 50 mls/hr Magnesium Sulfate/Dextrose 1 (gm/ Premix) 100 mls @ 100 mls/hr IV ONETIME ONE Stop: 10/13/19 11:59 Last Admin: 10/13/19 10:25 Dose: 100 mls/hr Magnesium Sulfate/Dextrose 1 (gm/ Premix) 100 mls @ 100 mls/hr IV ONETIME ONE Stop: 10/13/19 14:59 Last Admin: 10/13/19 14:58 Dose: 100 mls/hr Sodium Chloride (Normal Saline) 1,000 mls @ 125 mls/hr IV ASDIRECTED TRAVIS Stop: 10/14/19 00:36 Last Admin: 10/13/19 10:25 Dose: 125 mls/hr Sodium Chloride (Normal Saline) 1,000 mls @ 999 mls/hr IV .BOLUS ONE Stop: 10/13/19 20:25 Last Admin: 10/13/19 20:07 Dose: 999 mls/hr Iopamidol (Isovue-370 (76%)) 100 ml IVPUSH ONETIME STA Stop: 10/13/19 08:34 Last Admin: 10/13/19 09:06 Dose: 100 ml Lorazepam (Ativan) 0.5 mg IVPUSH ONETIME ONE Stop: 10/13/19 07:24 Last Admin: 10/13/19 07:31 Dose: 0.5 mg Magnesium Citrate (Citrate Of Magnesia) 0 ml PO ONETIME ONE Stop: 10/13/19 08:23 Last Admin: 10/13/19 08:29 Dose: 296 ml Morphine Sulfate (Morphine) 2 mg IVPUSH ONETIME ONE Stop: 10/13/19 08:01 Last Admin: 10/13/19 08:03 Dose: 2 mg Nitroglycerin (Nitrostat) 0.4 mg SL ONETIME STA Stop: 10/14/19 07:24 Last Admin: 10/13/19 07:30 Dose: 0.4 mg Ondansetron HCl (Zofran) 4 mg IVPUSH ONETIME ONE Stop: 10/13/19 08:01 Last Admin: 10/13/19 08:03 Dose: 4 mg Polyethylene Glycol (Miralax) 17 gm PO ONETIME ONE Stop: 10/13/19 08:23 Last Admin: 10/13/19 08:30 Dose: 17 gm Potassium Chloride (Klor-Con M20) 40 meq PO ONETIME ONE Stop: 10/13/19 08:22 Last Admin: 10/13/19 08:29 Dose: 40 meq Potassium Chloride (Klor-Con M20) 40 meq PO ONETIME ONE Stop: 10/13/19 10:31 Last Admin: 10/13/19 10:24 Dose: 40 meq Potassium Chloride (Klor-Con M20) 40 meq PO ONETIME ONE Stop: 10/13/19 15:01 Last Admin: 10/13/19 14:59 Dose: 40 meq Ticagrelor (Brilinta) 180 mg PO ONETIME ONE Stop: 10/13/19 07:23 Last Admin: 10/13/19 07:31 Dose: 180 mg - Exam General: Alert, Oriented, Cooperative, No Acute Distress HEENT: Pupils Equal, Pupils Reactive, EOMI, Mucous Membr. Moist/[place] Neck: Supple Lungs: Clear to Auscultation, Normal Respiratory Effort Cardiovascular: Regular Rate, Regular Rhythm GI/Abdominal Exam: Normal Bowel Sounds, Soft, Non-Tender, No Distention (Female) Exam: Deferred Back Exam: No: CVA Tenderness (L), CVA Tenderness (R), Muscle Spasm, Paraspinal Tenderness, Vertebral Tenderness Extremities: Normal Range of Motion, Non-Tender, Normal Capillary Refill Skin: Warm, Dry Neurological: No New Focal Deficit Psy/Mental Status: Alert, Normal Affect, Normal Mood EKG INTERPRETATION EKG Date: 10/14/19 Time: 07:07 Rhythm: NSR Rate (Beats/Min): 75 [place]: Normal P-Wave: Present QRS: Normal ST-T: Normal QT: Normal Sepsis Event Note - Evaluation Sepsis Screening Result: No Definite Risk - Focused Exam Vital Signs: Vital Signs Temp Pulse Resp BP Pulse Ox 10/14/19 11:03 36.6 C 95 18 149/99 H 98 10/14/19 07:08 36.8 C 62 17 139/83 97 Date Exam was Performed: 10/14/19 Time Exam was Performed: 14:49 - Problem List & Annotations (1) UTI (urinary tract infection) SNOMED Code(s): 62537475 Code(s): N39.0 - URINARY TRACT INFECTION, SITE NOT SPECIFIED Status: Acute Current Visit: Yes Qualifiers: Hematuria presence: with hematuria Annotation/Comment:: Patient not complaining of dysuria but noted to have semi- packed WBC in UA obtained after admission. UC requested. Did complain of intermittent low back pain overnight which is suggestive of possible pyelonephritis. No fevers. Was started on Rocephin in ER given elevated WBC and lactic acid. Will continue Rocephin and add Septra DS for better coverage of pyelo. Recheck UA in AM to see if infection is responding. (2) Chest pain SNOMED Code(s): 26270215 Code(s): R07.9 - CHEST PAIN, UNSPECIFIED Status: Acute Priority: High Current Visit: No Onset Date: 10/13/19 Qualifiers: Chest pain type: precordial pain Qualified Code(s): R07.2 - Precordial pain Annotation/Comment:: Chest pain protocol initiated in the emergency room. Note strong anxiety component to patient's symptoms and recent Meth use. Serial Troponins negative. No changes noted on EKGs performed yesterday and today. Telemetry unremarkable and eventually discontinued. 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 (3) Hypokalemia SNOMED Code(s): 79718887 Code(s): E87.6 - HYPOKALEMIA Status: Acute Priority: High Current Visit : No Onset Date: 10/13/19 Annotation/Comment:: Normalized. Potassium chloride initiated in the emergency room. Continuing daily monitoring of levels. No recent diarrhea, emesis, etc. by patient history. (4) Elevated lactic acid level SNOMED Code(s): 1741996 Code(s): R79.89 - OTHER SPECIFIED ABNORMAL FINDINGS OF BLOOD CHEMISTRY Status: Acute Priority: High Current Visit: Yes Onset Date: 10/13/19 Annotation/Comment:: No clinical evidence of sepsis. No hypotension noted. Found to have UTI with questionable pyelonephritis given low back pain complaints. Remains elevated today. WBC has improved. Afebrile. Will continue antibiotic coverage for UTI. Patient feels improved today. Recheck level tomorrow. (5) Hypomagnesemia SNOMED Code(s): 735341212 Code(s): E83.42 - HYPOMAGNESEMIA Status: Acute Priority: High Current Visit: Yes Onset Date: 10/13/19 Annotation/Comment:: Normalized after IV Mag supplementation. Will change to PO supplementation with continuation after discharge. (6) Elevated platelet count SNOMED Code(s): 136572547 Code(s): R79.89 - OTHER SPECIFIED ABNORMAL FINDINGS OF BLOOD CHEMISTRY Status: Acute Priority: Medium Current Visit: Yes Annotation/Comment:: Noted to have elevated platelets. This may be due to current infection. Will recommend follow up with a primary care provider after discharge to see if number normalizes. (7) D-dimer, elevated SNOMED Code(s): 184619810 Code(s): R79.89 - OTHER SPECIFIED ABNORMAL FINDINGS OF BLOOD CHEMISTRY Status: Acute Priority: High Current Visit: Yes Onset Date: 10/13/19 Annotation/Comment:: CTA of the chest ordered using PE negative. No complaint of pain/swelling/redness in legs. (8) Elevated blood pressure reading SNOMED Code(s): 61599768 Code(s): R03.0 - ELEVATED BLOOD-PRESSURE READING, W/O DIAGNOSIS OF HTN Status: Acute Priority: High Current Visit: Yes Onset Date: 10/13/19 Annotation/Comment:: Previous history of hypertension. Anxiety component. Continue to observe closely during this hospitalization. (9) Hyperglycemia SNOMED Code(s): 07256953 Code(s): R73.9 - HYPERGLYCEMIA, UNSPECIFIED Status: Acute Priority: Medium Current Visit: Yes Onset Date: 10/13/19 Annotation/Comment:: Improved blood sugar trend over last two days. Normal A1c. (10) Constipation SNOMED Code(s): 15478660 Code(s): K59.00 - CONSTIPATION, UNSPECIFIED Status: Acute Priority: Medium Current Visit: No Qualifiers: Constipation type: slow transit constipation Qualified Code(s): K59.01 - Slow transit constipation Annotation/Comment:: Long history of constipation. Note significant bowel gas and today's x-ray. Continue abdominal x-rays depending on her clinical course. Magnesium citrate and MiraLAX given in the emergency room. (11) PAC (premature atrial contraction) SNOMED Code(s): 289590781 Code(s): I49.1 - ATRIAL PREMATURE DEPOLARIZATION Status: Acute Priority: High Current Visit: No Onset Date: 10/13/19 Annotation/Comment:: Improved. (12) PVCs (premature ventricular contractions) SNOMED Code(s): 75693914 Code(s): I49.3 - VENTRICULAR PREMATURE DEPOLARIZATION Status: Acute Priority: High Current Visit: No Onset Date: 10/13/19 Annotation/Comment: : As above. (13) Illicit drug use, continuous SNOMED Code(s): 636698260 Code(s): F19.90 - OTHER PSYCHOACTIVE SUBSTANCE USE, UNSPECIFIED, UNCOMPLICATED Status: Chronic Priority: Medium Current Visit: No Annotation/Comment:: Note methamphetamine prior to presentation to ER. Case management visited with patient today to see how patient feels about the recent drug use and possible treatment options once discharged. Patient very vague in regards to the above. Consider referral for psychiatric treatment, including drug rehabilitation program, etc. (14) Mixed anxiety depressive disorder SNOMED Code(s): 862002827 Code(s): F41.8 - OTHER SPECIFIED ANXIETY DISORDERS Status: Chronic Priority: High Current Visit: No Annotation/Comment:: Improved. Increased stressors per patient secondary to her son spending the holidays with her ex- . Note previous history of alcohol abuse with current illicit drug use. IV Ativan given in the emergency room. Ativan should likely not be given at discharge secondary to patient's substance abuse history as above. (15) Osteoarthritis SNOMED Code(s): 922983392 Code(s): M19.90 - UNSPECIFIED OSTEOARTHRITIS, UNSPECIFIED SITE Status: Chronic Priority: Medium Current Visit: No Qualifiers: Osteoarthritis location: multiple joints Osteoarthritis type: primary Qualified Code(s): M15.0 - Primary generalized (osteo)arthritis Annotation/Comment:: Stable moderate by history (16) Tobacco abuse counseling SNOMED Code(s): 001245492, 800203637, 180639096 Code(s): Z71.6 - TOBACCO ABUSE COUNSELING Status: Chronic Priority: Medium Current Visit: No Annotation/Comment:: The patient and her were strongly encouraged to discontinue tobacco use with tobacco cessation information to be provided at discharge. - Problem List Review Problem List Initiated/Reviewed/Updated: Yes - My Orders Last 24 Hours: My Active Orders 10/13/19 19:30 Sulfamethoxazole/Trimethoprim [Septra DS] 1 tab PO BID 10/13/19 Dinner Regular Diet [DIET] 10/14/19 08:00 cefTRIAXone [Rocephin] 1 gm Sodium Chloride 0.9% [Normal Saline] 100 ml IV DAILY 10/14/19 11:15 Enoxaparin [Lovenox] 40 mg SUBCUT DAILY 10/14/19 11:30 Nicotine [Habitrol] 21 mg TRDERM DAILY 10/14/19 13:12 Sodium Chloride 0.9% [Normal Saline] 1,000 ml IV .BOLUS 10/14/19 13:15 Metoprolol Succinate [Toprol XL] 25 mg PO DAILY 10/15/19 05:11 IRON PNL (FE, TIBC, MARITA, %SAT) [REF] Routine UA W/MICROSCOPIC [URIN] AM 10/15/19 05:15 BASIC METABOLIC PANEL,BMP [CHEM] AM CBC WITH AUTO DIFF [HEME] AM - Assessment Assessment:: as above - Plan Plan:: as above. Changed from observation to inpatient today due to suspicion for pyelonephritis and continued elevation of lactic acid level. Anticipate 2 additional days of inpatient care in order to receive IV antibiotic coverage for UTI. This will provide for better coverage of the infection as there are concerns around patient's compliance with outpatient antibiotics after discharge given her recent drug use/poor decision making.
[2019-10-14] MEDS: Metoprolol Succinate 25 MG Tab.ER PO SCH (13:27)
[2019-10-14] MEDS: Potassium Chloride 10 MEQ Tab.ER PO SCH (15:45)
[2019-10-14] MEDS: Magnesium Oxide 400 MG Tab PO SCH (15:45)
[2019-10-14] MEDS: Acetaminophen 325 MG Tab PO PRN (17:10)
--- NOTE | 2019-10-15 07:01 | PCM.PN ---
- General Info Date of Service: 10/15/19 Admission Dx/Problem (Free Text): Chest pain/low K and Mg. Found to have UTI after admission to floor. Recent Meth ingestion. Subjective Update: Patient has no new complaints. Back pain improved. Currently pain-free. Feels tired. Functional Status: Reports: Pain Controlled, Tolerating Diet, Ambulating, Urinating. Denies: New Symptoms - Review of Systems General: Reports: Fatigue. Denies: Fever, Malaise, Chills, Night Sweats HEENT: Reports: No Symptoms Pulmonary: Reports: No Symptoms. Denies: Cough Cardiovascular: Reports: No Symptoms. Denies: Chest Pain Gastrointestinal: Reports: No Symptoms. Denies: Abdominal Pain, Constipation, Diarrhea, Melena, Nausea, Vomiting Genitourinary: Reports: No Symptoms Musculoskeletal: Reports: No Symptoms Skin: Reports: No Symptoms Neurological: Reports: No Symptoms Psychiatric: Reports: No Symptoms - Patient Data Vitals - Most Recent: Last Vital Signs Temp 37.0 C 10/14/19 19:59 Pulse 75 10/14/19 19:59 Resp 14 10/14/19 19:59 BP 125/80 10/14/19 19:59 Pulse Ox 96 10/14/19 19:59 Weight - Most Recent: 55.61 kg I&O - Last 24 Hours: Intake & Output 10/14/19 10/14/19 10/15/19 14:59 22:59 06:59 Intake Total 1720 450 500 Output Total 0090 360 9099 Balance 270 -50 -800 Lab Results Last 24 Hours: Laboratory Results - last 24 hr 10/14/19 10/14/19 10/14/19 Range/Units 07:20 07:20 07:20 WBC 9.5 (4.0-10.2) K/uL RBC 4.52 (3.77-5.09) M/uL Hgb 11.3 L (11.7-15.5) g/dL Hct 35.2 (34.0-46.0) % MCV 77.9 L (84.0-98.0) fL MCH 25.0 L (28.2-33.3) pg MCHC 32.1 (31.7-36.0) g/dL RDW 15.3 H (11.2-14.1) % Plt Count 656 H (150-350) K/uL Neut % (Auto) 63.5 (45.0-80.0) % Lymph % (Auto) 30.4 (10.0-50.0) % Howard % (Auto) 4.3 (2.0-14.0) % Eos % (Auto) 1.7 (0.0-5.0) % Baso % (Auto) 0.1 (0.0-2.0) % Neut # (Auto) 6.05 (1.40-7.00) K/uL Lymph # (Auto) 2.89 (0.50-3.50) K/uL Howard # (Auto) 0.41 (0.00-1.00) K/uL Eos # (Auto) 0.16 (0.00-0.50) K/uL Baso # (Auto) 0.01 (0.00-0.20) K/uL Sodium 141 (136-145) mmol/L Potassium 3.8 (3.5-5.1) mmol/L Chloride 102 (98-107) mmol/L Carbon Dioxide 25.6 (21.0-32.0) mmol/L BUN 3 L (7-18) mg/dL Creatinine 0.64 (0.51-1.17) mg/dL Est Cr Clr Drug Dosing 103.93 mL/min Estimated GFR (MDRD) > 60 mL/min Glucose 87 (74-106) mg/dL Lactic Acid 4.9 H (0.4-2.0) mmol/L Calcium 8.9 (8.5-10.1) mg/dL Magnesium 2.2 (1.8-2.4) mg/dL Total Bilirubin 0.1 L (0.2-1.0) mg/dL AST 13 L (15-37) U/L ALT 11 L (12-78) U/L Alkaline Phosphatase 132 H (46-116) IU/L Troponin I 0.000 (0.000-0.056) ng/mL Total Protein 7.6 (6.4-8.2) g/dL Albumin 3.0 L (3.4-5.0) g/dL Senthil Results Last 24 Hours: Microbiology 10/13/19 09:42 Urine Culture - Final Urine, Clean Catch Med Orders - Current: Current Medications Acetaminophen (Tylenol) 650 mg PO Q4H PRN PRN Reason: Pain (Mild 1-3)/fever Last Admin: 10/14/19 17:10 Dose: 650 mg Enoxaparin Sodium (Lovenox) 40 mg SUBCUT DAILY [facility] Last Admin: 10/14/19 11:36 Dose: 40 mg Ceftriaxone Sodium 1 gm/ (Sodium Chloride) 100 mls @ 200 mls/hr IV DAILY [facility] Last Admin: 10/14/19 07:34 Dose: 200 mls/hr Lorazepam (Ativan) 1 mg IV Q6H PRN PRN Reason: Nausea/Vomiting Last Admin: 10/13/19 12:06 Dose: 1 mg Magnesium Oxide (Magnesium Oxide) 400 mg PO DAILY [facility] Last Admin: 10/14/19 15:45 Dose: 400 mg Metoprolol Succinate (Toprol Xl) 25 mg PO DAILY [facility] Last Admin: 10/14/19 13:27 Dose: 25 mg Miscellaneous Information (Remove Patch) 1 ea TRDERM DAILY [facility] Nicotine (Habitrol) 21 mg TRDERM DAILY [facility] Last Admin: 10/14/19 11:36 Dose: 21 mg Ondansetron HCl (Zofran) 4 mg IVPUSH Q6H PRN PRN Reason: Nausea/Vomiting Potassium Chloride (Klor-Con 10) 10 meq PO DAILY [facility] Last Admin: 10/14/19 15:45 Dose: 10 meq Sodium Chloride (Saline Flush) 10 ml FLUSH ASDIRECTED PRN PRN Reason: Keep Vein Open Last Admin: 10/13/19 10:26 Dose: 10 ml Trimethoprim/Sulfamethoxazole (Septra Ds) 1 tab PO BID [facility] Last Admin: 10/14/19 17:10 Dose: 1 tab Discontinued Medications Aspirin (Aspirin) 324 mg CHEW ONETIME ONE Stop: 10/13/19 07:23 Last Admin: 10/13/19 07:30 Dose: 324 mg Famotidine (Pepcid) 40 mg IVPUSH ONETIME ONE Stop: 10/13/19 07:23 Last Admin: 10/13/19 07:39 Dose: 40 mg Ceftriaxone Sodium 1 gm/ (Sodium Chloride) 100 mls @ 200 mls/hr IV ONETIME ONE Stop: 10/13/19 08:49 Last Admin: 10/13/19 08:29 Dose: 200 mls/hr Magnesium Sulfate 2 gm/ Premix 50 mls @ 50 mls/hr IV ONETIME ONE Stop: 10/13/19 09:19 Last Admin: 10/13/19 09:06 Dose: 50 mls/hr Magnesium Sulfate/Dextrose 1 (gm/ Premix) 100 mls @ 100 mls/hr IV ONETIME ONE Stop: 10/13/19 11:59 Last Admin: 10/13/19 10:25 Dose: 100 mls/hr Magnesium Sulfate/Dextrose 1 (gm/ Premix) 100 mls @ 100 mls/hr IV ONETIME ONE Stop: 10/13/19 14:59 Last Admin: 10/13/19 14:58 Dose: 100 mls/hr Sodium Chloride (Normal Saline) 1,000 mls @ 125 mls/hr IV ASDIRECTED TRAVIS Stop: 10/14/19 00:36 Last Admin: 10/13/19 10:25 Dose: 125 mls/hr Sodium Chloride (Normal Saline) 1,000 mls @ 999 mls/hr IV .BOLUS ONE Stop: 10/13/19 20:25 Last Admin: 10/13/19 20:07 Dose: 999 mls/hr Sodium Chloride (Normal Saline) 1,000 mls @ 200 mls/hr IV BOLUS ONE Stop: 10/14/19 18:11 Last Admin: 10/14/19 13:28 Dose: 200 mls/hr Iopamidol (Isovue-370 (76%)) 100 ml IVPUSH ONETIME STA Stop: 10/13/19 08:34 Last Admin: 10/13/19 09:06 Dose: 100 ml Lorazepam (Ativan) 0.5 mg IVPUSH ONETIME ONE Stop: 10/13/19 07:24 Last Admin: 10/13/19 07:31 Dose: 0.5 mg Magnesium Citrate (Citrate Of Magnesia) 0 ml PO ONETIME ONE Stop: 10/13/19 08:23 Last Admin: 10/13/19 08:29 Dose: 296 ml Morphine Sulfate (Morphine) 2 mg IVPUSH ONETIME ONE Stop: 10/13/19 08:01 Last Admin: 10/13/19 08:03 Dose: 2 mg Nitroglycerin (Nitrostat) 0.4 mg SL ONETIME STA Stop: 10/14/19 07:24 Last Admin: 10/13/19 07:30 Dose: 0.4 mg Ondansetron HCl (Zofran) 4 mg IVPUSH ONETIME ONE Stop: 10/13/19 08:01 Last Admin: 10/13/19 08:03 Dose: 4 mg Polyethylene Glycol (Miralax) 17 gm PO ONETIME ONE Stop: 10/13/19 08:23 Last Admin: 10/13/19 08:30 Dose: 17 gm Potassium Chloride (Klor-Con M20) 40 meq PO ONETIME ONE Stop: 10/13/19 08:22 Last Admin: 10/13/19 08:29 Dose: 40 meq Potassium Chloride (Klor-Con M20) 40 meq PO ONETIME ONE Stop: 10/13/19 10:31 Last Admin: 10/13/19 10:24 Dose: 40 meq Potassium Chloride (Klor-Con M20) 40 meq PO ONETIME ONE Stop: 10/13/19 15:01 Last Admin: 10/13/19 14:59 Dose: 40 meq Ticagrelor (Brilinta) 180 mg PO ONETIME ONE Stop: 10/13/19 07:23 Last Admin: 10/13/19 07:31 Dose: 180 mg - Exam Quality Assessment: DVT Prophylaxis General: Alert, Oriented, Cooperative HEENT: Pupils Equal, Pupils Reactive, EOMI, Mucous Membr. Moist/[place] Neck: Supple Lungs: Clear to Auscultation, Normal Respiratory Effort Cardiovascular: Regular Rate, Regular Rhythm GI/Abdominal Exam: Normal Bowel Sounds, Soft, Non-Tender, No Distention (Female) Exam: Deferred Back Exam: Normal Inspection. No: CVA Tenderness (L), CVA Tenderness (R), Muscle Spasm, Paraspinal Tenderness, Vertebral Tenderness Extremities: Normal Range of Motion, Non-Tender, Normal Capillary Refill Skin: Warm, Dry Neurological: No New Focal Deficit Psy/Mental Status: Other (Patient is awake. Somewhat vague with answers to questions. No hallucinations noted. ) Sepsis Event Note - Evaluation Sepsis Screening Result: No Definite Risk - Focused Exam Vital Signs: Vital Signs Temp Pulse Resp BP Pulse Ox 10/14/19 19:59 37.0 C 75 14 125/80 96 Date Exam was Performed: 10/15/19 Time Exam was Performed: 07:02 - Problem List & Annotations (1) UTI (urinary tract infection) SNOMED Code(s): 88412317 Code(s): N39.0 - URINARY TRACT INFECTION, SITE NOT SPECIFIED Status: Acute Current Visit: Yes Qualifiers: Hematuria presence: with hematuria Annotation/Comment:: Patient not complaining of dysuria but noted to have semi- packed WBC in UA obtained after admission. UC requested. Did complain of intermittent low back pain earlier suggestive of pyelo. No fevers. Was started on Rocephin in ER given elevated WBC and lactic acid. Will continue Rocephin and Septra DS for better coverage of pyelo. Recheck UA today (2) Chest pain SNOMED Code(s): 85269793 Code(s): R07.9 - CHEST PAIN, UNSPECIFIED Status: Acute Priority: High Current Visit: No Onset Date: 10/13/19 Qualifiers: Chest pain type: precordial pain Qualified Code(s): R07.2 - Precordial pain Annotation/Comment:: Chest pain protocol initiated in the emergency room. Note strong anxiety component to patient's symptoms and recent Meth use. Serial Troponins negative. No changes noted on EKGs performed. Telemetry unremarkable and eventually discontinued. 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 (3) Hypokalemia SNOMED Code(s): 90234295 Code(s): E87.6 - HYPOKALEMIA Status: Acute Priority: High Current Visit : No Onset Date: 10/13/19 Annotation/Comment:: Normalized. Potassium chloride initiated in the emergency room. Continuing daily monitoring of levels. No recent diarrhea, emesis, etc. by patient history. (4) Elevated lactic acid level SNOMED Code(s): 1556920 Code(s): R79.89 - OTHER SPECIFIED ABNORMAL FINDINGS OF BLOOD CHEMISTRY Status: Acute Priority: High Current Visit: Yes Onset Date: 10/13/19 Annotation/Comment:: No clinical evidence of sepsis. No hypotension noted. Found to have UTI with questionable pyelonephritis given low back pain complaints. WBC has improved. Recheck lactic acid level this morning. (5) Hypomagnesemia SNOMED Code(s): 272520943 Code(s): E83.42 - HYPOMAGNESEMIA Status: Acute Priority: High Current Visit: Yes Onset Date: 10/13/19 Annotation/Comment:: Normalized after IV Mag supplementation. Will change to PO supplementation with continuation after discharge. (6) Elevated platelet count SNOMED Code(s): 478643348 Code(s): R79.89 - OTHER SPECIFIED ABNORMAL FINDINGS OF BLOOD CHEMISTRY Status: Acute Priority: Medium Current Visit: Yes Annotation/Comment:: Noted to have elevated platelets. This may be due to current infection. Will recommend follow up with a primary care provider after discharge to see if number normalizes. (7) D-dimer, elevated SNOMED Code(s): 514274880 Code(s): R79.89 - OTHER SPECIFIED ABNORMAL FINDINGS OF BLOOD CHEMISTRY Status: Acute Priority: High Current Visit: Yes Onset Date: 10/13/19 Annotation/Comment:: CTA of the chest ordered using PE negative. No complaint of pain/swelling/redness in legs. (8) Elevated blood pressure reading SNOMED Code(s): 28104199 Code(s): R03.0 - ELEVATED BLOOD-PRESSURE READING, W/O DIAGNOSIS OF HTN Status: Acute Priority: High Current Visit: Yes Onset Date: 10/13/19 Annotation/Comment:: Previous history of hypertension. Anxiety component. Metoprolol initiated. (9) Hyperglycemia SNOMED Code(s): 89113738 Code(s): R73.9 - HYPERGLYCEMIA, UNSPECIFIED Status: Acute Priority: Medium Current Visit: Yes Onset Date: 10/13/19 Annotation/Comment:: Improved blood sugar trend over last two days. Normal A1c. (10) Constipation SNOMED Code(s): 06779670 Code(s): K59.00 - CONSTIPATION, UNSPECIFIED Status: Acute Priority: Medium Current Visit: No Qualifiers: Constipation type: slow transit constipation Qualified Code(s): K59.01 - Slow transit constipation Annotation/Comment:: Long history of constipation. Magnesium citrate and MiraLAX given in the emergency room with good results. (11) PAC (premature atrial contraction) SNOMED Code(s): 739025562 Code(s): I49.1 - ATRIAL PREMATURE DEPOLARIZATION Status: Acute Priority: High Current Visit: No Onset Date: 10/13/19 Annotation/Comment:: Improved. (12) PVCs (premature ventricular contractions) SNOMED Code(s): 60821776 Code(s): I49.3 - VENTRICULAR PREMATURE DEPOLARIZATION Status: Acute Priority: High Current Visit: No Onset Date: 10/13/19 Annotation/Comment: : As above. (13) Illicit drug use, continuous SNOMED Code(s): 223855595 Code(s): F19.90 - OTHER PSYCHOACTIVE SUBSTANCE USE, UNSPECIFIED, UNCOMPLICATED Status: Chronic Priority: Medium Current Visit: No Annotation/Comment:: Note methamphetamine prior to presentation to ER. Case management visited with patient today to see how patient feels about the recent drug use and possible treatment options once discharged. Patient very vague in regards to the above. Consider referral for psychiatric treatment, including drug rehabilitation program, etc. Has had several male visitors that exhibit very poor hygiene and have suspicious history. Will repeat drug screen as patient seems more out of it today than yesterday and there is concern that she may have been given additional substances by these visitors. (14) Mixed anxiety depressive disorder SNOMED Code(s): 980088222 Code(s): F41.8 - OTHER SPECIFIED ANXIETY DISORDERS Status: Chronic Priority: High Current Visit: No Annotation/Comment:: Improved. Increased stressors per patient secondary to her son spending the holidays with her ex- . Note previous history of alcohol abuse with current illicit drug use. IV Ativan given in the emergency room. Ativan should likely not be given at discharge secondary to patient's substance abuse history as above. (15) Osteoarthritis SNOMED Code(s): 687245522 Code(s): M19.90 - UNSPECIFIED OSTEOARTHRITIS, UNSPECIFIED SITE Status: Chronic Priority: Medium Current Visit: No Qualifiers: Osteoarthritis location: multiple joints Osteoarthritis type: primary Qualified Code(s): M15.0 - Primary generalized (osteo)arthritis Annotation/Comment:: Stable moderate by history (16) Tobacco abuse counseling SNOMED Code(s): 583515443, 856797501, 186191515 Code(s): Z71.6 - TOBACCO ABUSE COUNSELING Status: Chronic Priority: Medium Current Visit: No Annotation/Comment:: The patient and her were strongly encouraged to discontinue tobacco use with tobacco cessation information to be provided at discharge. - Problem List Review Problem List Initiated/Reviewed/Updated: Yes - My Orders Last 24 Hours: My Active Orders 10/14/19 08:00 cefTRIAXone [Rocephin] 1 gm Sodium Chloride 0.9% [Normal Saline] 100 ml IV DAILY 10/14/19 11:15 Enoxaparin [Lovenox] 40 mg SUBCUT DAILY 10/14/19 11:30 Nicotine [Habitrol] 21 mg TRDERM DAILY 10/14/19 13:15 Metoprolol Succinate [Toprol XL] 25 mg PO DAILY 10/14/19 15:15 Magnesium Oxide 400 mg PO DAILY Potassium Chloride [Klor-Con 10] 10 meq PO DAILY 10/14/19 20:15 Vital Signs [RC] Q4HWA 10/15/19 05:11 IRON PNL (FE, TIBC, MARITA, %SAT) [REF] Routine LACTIC ACID [CHEM] AM UA W/MICROSCOPIC [URIN] AM 10/15/19 05:15 BASIC METABOLIC PANEL,BMP [CHEM] AM CBC WITH AUTO DIFF [HEME] AM 10/15/19 08:00 Remove Patch 1 ea TRDERM DAILY - Assessment Assessment:: as above - Plan Plan:: as above. Changed from observation to inpatient today due to suspicion for pyelonephritis and continued elevation of lactic acid level. Anticipate 1 additional days of inpatient care in order to receive IV antibiotic coverage for UTI. This will provide for better coverage of the infection as there are significant concerns regarding patient's behavior and compliance with outpatient antibiotics after discharge given her recent drug use/poor decision making.
[2019-10-15 07:27] LABS: CHLORIDE,CL 104 mmol/L (98-107); SODIUM,NA 139 mmol/L (136-145)
[2019-10-15] MEDS: cefTRIAXone 1 GM in Sodium Chloride 0.9% 100 ML IV SCH (08:41)
[2019-10-15] MEDS: Sodium Chloride 0.9% 10 ML Syringe FLUSH PRN ×2 (08:41→09:34)
[2019-10-15] MEDS: Nicotine 21 MG/24 Hr Patch TRDERM SCH (08:44)
[2019-10-15] MEDS: Enoxaparin 40 MG/0.4 ML Syringe SUBCUT SCH (08:44)
[2019-10-15] MEDS: Metoprolol Succinate 25 MG Tab.ER PO SCH (08:48)
[2019-10-15] MEDS: Sulfamethoxazole/Trimethoprim 800-160 MG Tab PO SCH ×2 (08:48→17:46)
[2019-10-15] MEDS: Potassium Chloride 10 MEQ Tab.ER PO SCH (08:49)
[2019-10-15] MEDS: Magnesium Oxide 400 MG Tab PO SCH (08:49)
[2019-10-15 09:09] LABS: BARBITURATE SCREEN,URINE NEGATIVE (NEGATIVE); BENZODIAZEPINES SCREEN,URINE NEGATIVE (NEGATIVE); EDDP,URINE SCREEN NEGATIVE (NEGATIVE); TCA SCREEN,URINE NEGATIVE (NEGATIVE); THC SCREEN,URINE 50 NG/ML NEGATIVE (NEGATIVE)
--- NOTE | 2019-10-15 13:58 | PCM.SN ---
- Free Text/Narrative Note: Today's drug screen + for MDMA Patient is not to have any visitors as it is suspected that she was given this by one of her visitors. Patient denies taking anything illicit when confronted about the new findings.
[2019-10-16 07:22] VITALS: BP 116/71; PULSE 86
[2019-10-16] MEDS: cefTRIAXone 1 GM in Sodium Chloride 0.9% 100 ML IV SCH (07:22)
[2019-10-16] MEDS: Sodium Chloride 0.9% 10 ML Syringe FLUSH PRN ×2 (07:23→08:14)
[2019-10-16] MEDS: Enoxaparin 40 MG/0.4 ML Syringe SUBCUT SCH (07:25)
[2019-10-16] MEDS: Potassium Chloride 10 MEQ Tab.ER PO SCH (07:26)
[2019-10-16] MEDS: Sulfamethoxazole/Trimethoprim 800-160 MG Tab PO SCH (07:26)
[2019-10-16] MEDS: Metoprolol Succinate 25 MG Tab.ER PO SCH (07:26)
[2019-10-16] MEDS: Nicotine 21 MG/24 Hr Patch TRDERM SCH (07:27)
[2019-10-16] MEDS: Magnesium Oxide 400 MG Tab PO SCH (07:27)
--- NOTE | 2019-10-16 09:11 | PCM.DCSUM1 ---
Discharge Summary - Hospital Course HPI Initial Comments: See emergency room note/admission H&P Brief History: See emergency room note/admission H&P Diagnosis: Stroke: No Modified Peck Scale: No Symptoms at All Modified Peck Scale Score: 0 - Discharge Data Discharge Date: 10/16/19 Discharge Disposition: Home, Self-Care 01 Condition: Good - Referral to Home Health Primary Care Physician: PCP None - Discharge Diagnosis/Problem(s) (1) Chest pain SNOMED Code(s): 43475737 ICD Code: R07.9 - CHEST PAIN, UNSPECIFIED Status: Acute Priority: High Current Visit: Yes Onset Date: 10/13/19 Problem Details: Negative workup for acute [place] during this hospitalization. Chest pain protocol initiated in the emergency room. Note strong anxiety component to patient's symptoms and recent Meth use. Serial Troponins negative. No changes noted on EKGs performed. Telemetry unremarkable and eventually discontinued. 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 Qualifiers: Chest pain type: precordial pain Qualified Code(s): R07.2 - Precordial pain (2) Illicit drug use, continuous SNOMED Code(s): 067636939 ICD Code: F19.90 - OTHER PSYCHOACTIVE SUBSTANCE USE, UNSPECIFIED, UNCOMPLICATED Status: Chronic Priority: High Current Visit: Yes Problem Details: No symptoms of methamphetamine withdrawal at time of discharge. Note patient was extensively counseled on day of discharge and during this hospitalization concerning strict avoidance of all illicit drug use in the future with methamphetamines a large component of patient's symptoms prior to admission. Note methamphetamine prior to presentation to ER. Case management visited with patient on 10/15 to see how patient feels about the recent drug use and possible treatment options once discharged. Patient very vague in regards to the above. Consider referral for psychiatric treatment, including drug rehabilitation program, etc. by her new regular provider as per discharge instructions. Has had several male visitors that exhibit very poor hygiene and have suspicious history. Will repeat drug screen as patient seems more out of it today than yesterday and there is concern that she may have been given additional substances by these visitors. (3) Mixed anxiety depressive disorder SNOMED Code(s): 030026847 ICD Code: F41.8 - OTHER SPECIFIED ANXIETY DISORDERS Status: Chronic Priority: High Current Visit: Yes Problem Details: Improved during this hospitalization, however patient may benefit from psychiatric counseling, drug treatment program, and/or possible initiation of antidepressants. Note the patient did require IV Ativan during her emergency room care. Increased stressors per patient secondary to her son spending the holidays with her ex- . Note previous history of alcohol abuse with current illicit drug use. Ativan was not given at discharge secondary to patient's substance abuse history as above. (4) Osteoarthritis SNOMED Code(s): 179372738 ICD Code: M19.90 - UNSPECIFIED OSTEOARTHRITIS, UNSPECIFIED SITE Status: Chronic Priority: Medium Current Visit: Yes Problem Details: Stable moderate by history Qualifiers: Osteoarthritis location: multiple joints Osteoarthritis type: primary Qualified Code(s): M15.0 - Primary generalized (osteo)arthritis (5) PAC (premature atrial contraction) SNOMED Code(s): 010522746 ICD Code: I49.1 - ATRIAL PREMATURE DEPOLARIZATION Status: Acute Priority : High Current Visit: Yes Onset Date: 10/13/19 Problem Details: PACs and PVCs on admission likely secondary to methamphetamine use mainly prior to admission. Resolution of arrhythmia at time of discharge the patient initially placed in observation status and subsequently transferred to inpatient/acute care secondary to her lactic acid elevation, persistent elevated blood pressure , etc. Note negative workup for acute [place] as above, although serial EKGs did show a short ND interval, however no delta waves noted. (6) PVCs (premature ventricular contractions) SNOMED Code(s): 83834328 ICD Code: I49.3 - VENTRICULAR PREMATURE DEPOLARIZATION Status: Acute Priority: High Current Visit: Yes Onset Date: 10/13/19 Problem Details: As above. (7) Tobacco abuse counseling SNOMED Code(s): 979462518, 636312284, 148503834 ICD Code: Z71.6 - TOBACCO ABUSE COUNSELING Status: Chronic Priority: Medium Current Visit: Yes Problem Details: The patient and her were strongly encouraged to discontinue tobacco use with tobacco cessation information provided at discharge. (8) Constipation SNOMED Code(s): 32860758 ICD Code: K59.00 - CONSTIPATION, UNSPECIFIED Status: Chronic Priority: Medium Current Visit: Yes Problem Details: Long history of constipation with the patient encouraged to eat a high-fiber diet.. Magnesium citrate and MiraLAX given in the emergency room with good results during this hospitalization. Qualifiers: Constipation type: slow transit constipation Qualified Code(s): K59.01 - Slow transit constipation (9) Hypokalemia SNOMED Code(s): 53451605 ICD Code: E87.6 - HYPOKALEMIA Status: Acute Priority: Medium Current Visit: Yes Onset Date: 10/13/19 Problem Details: Normalized with aggressive oral potassium chloride supplementation, which was initiated in the emergency room. No recent diarrhea, emesis, etc. by patient history. Continue to observe closely by regular provider. (10) D-dimer, elevated SNOMED Code(s): 491019454 ICD Code: R79.89 - OTHER SPECIFIED ABNORMAL FINDINGS OF BLOOD CHEMISTRY Status: Acute Priority: High Current Visit: Yes Onset Date: 10/13/19 Problem Details: CTA of the chest using PE protocol was negative. Repeat d- dimer elevation at follow-up as per discharge instructions with consideration of venous Doppler studies of the lower extremities depending on her clinical course. No clinical evidence of DVT, however. (11) Elevated blood pressure reading SNOMED Code(s): 16314131 ICD Code: R03.0 - ELEVATED BLOOD-PRESSURE READING, W/O DIAGNOSIS OF HTN Status: Acute Priority: High Current Visit: Yes Onset Date: 10/13/19 Problem Details: Previous history of hypertension. Anxiety and methamphetamine component component. Metoprolol initiated in the emergency room secondary to her recent methamphetamine use, however will not be continued at discharge. Close follow-up by regular provider as per discharge instructions. (12) Hyperglycemia SNOMED Code(s): 24598602 ICD Code: R73.9 - HYPERGLYCEMIA, UNSPECIFIED Status: Acute Priority: Medium Current Visit: Yes Onset Date: 10/13/19 Problem Details: Improved blood sugar trend during this hospitalization with normal A1c. (13) Hypomagnesemia SNOMED Code(s): 327334977 ICD Code: E83.42 - HYPOMAGNESEMIA Status: Acute Priority: High Current Visit: Yes Onset Date: 10/13/19 Problem Details: Normalized after IV Mag supplementation, which was changed to oral supplementation during this hospitalization. No further supplementation after discharge, however close follow-up by regular provider as per discharge instructions. (14) Elevated lactic acid level SNOMED Code(s): 9044766 ICD Code: R79.89 - OTHER SPECIFIED ABNORMAL FINDINGS OF BLOOD CHEMISTRY Status: Acute Priority: High Current Visit: Yes Onset Date: 10/13/19 Problem Details: No clinical evidence of sepsis. No hypotension noted. Found to have UTI with questionable pyelonephritis given low back pain complaints. Note IV Rocephin therapy initiated on admission with additional oral Bactrim DS, which will be continued at discharge. Close follow-up by regular provider. Urine culture and sensitivity showed contaminated specimen. (15) Iron deficiency anemia SNOMED Code(s): 00760720 ICD Code: D50.9 - IRON DEFICIENCY ANEMIA, UNSPECIFIED Status: Acute Priority: Medium Current Visit: Yes Onset Date: ~10/14/19 Problem Details : Anemia stable at discharge. Initiate iron sulfate oral supplementation at discharge with close follow-up by regular provider as per discharge instructions. Qualifiers: Iron deficiency anemia type: unspecified iron deficiency Qualified Code(s) : D50.9 - Iron deficiency anemia, unspecified (16) Hypoalbuminemia SNOMED Code(s): 671644469 ICD Code: E88.09 - OTH DISORDERS OF PLASMA-PROTEIN METABOLISM, NEC Status: Acute Priority: Medium Current Visit: Yes Onset Date: ~10/15/19 Problem Details: Observe for now. (17) UTI (urinary tract infection) SNOMED Code(s): 05873096 ICD Code: N39.0 - URINARY TRACT INFECTION, SITE NOT SPECIFIED Status: Acute Priority: Medium Current Visit: Yes Onset Date: ~10/13/19 Problem Details: As above. Qualifiers: Hematuria presence: with hematuria - Patient Summary/Data Operative Procedure(s) Performed: None Complications: None Consults: Consultations 10/13/19 09:31 Consult to Case Management/Bottle Caser [CONS] Routine Labs Pending at D/C: Final report of CTA of the chest on 10/13/19. Recommended Follow-up Testing/Procedures: As per discharge instructions Planned Operative Procedure(s) after DC: None Hospital Course: Patient was initially placed in observation status on telemetry with negative workup for acute [place] as above. Secondary to refractory elevated blood pressure, elevated lactic acid level, etc. patient was subsequently transferred to acute/ inpatient care with treatment as above. She was placed on visitor restriction secondary to her and friends possibly trying to bring in methamphetamines into the hospital. No significant additional complications from her recent methamphetamine use. Emotional support was extensively provided during this hospitalization, including at time of discharge. Close follow-up by regular provider as per discharge instructions - Patient Instructions Diet: Heart Healthy Diet Activity: As Tolerated Driving: May Drive Today Showering/Bathing: May Shower Notify Provider of: Fever, Increased Pain, Nausea and/or Vomiting Other/Special Instructions: 1. Establish a new primary provider AGGIE as discussed. 2. Followup with your regular provider in 10-14 days as directed for reevaluation and recommended CBC, comprehensive metabolic panel, magnesium level, d-dimer, urine test, and urine for culture and sensitivity. Bring these discharge instructions with you to that visit. 3. Discuss at that follow-up visit possible referral for psychiatric counseling, drug rehabilitation program , initiation of medications for your anxiety and depression, possible venous Doppler studies of the legs, and/or further outpatient Cardiolite stress test. 4. TIBC/iron panel and ferritin level should be repeated in 4 weeks. 5. Strict avoidance of all illicit drugs as discussed. 6. Stop all tobacco use AGGIE as directed/per provided information and consider contacting [employer] [facility], etc.. 7. Immediately after this visit verify that your cellular telephone's voicemail has been activated and is empty. Also verify that your home telephone's answering machine is operating properly and has space to receive messages. Note that it is sometimes necessary for us to be able to contact you at a later date to discuss your medical care. 8. Please remember that we are ALWAYS here for you and want to answer any questions you may have. Feel free to call the hospital any time and we call you back AGGIE. 9. Continue to observe your blood pressures closely through your regular provider. 10. Take all 10 days of the Bactrim DS therapy, i.e., both prescription provided at discharge and additional prescription from your pharmacy. 11. Bowel movement goal of at least one excellent bowel movement every 2 days as discussed. - Discharge Plan *PRESCRIPTION DRUG MONITORING PROGRAM REVIEWED*: Not Applicable *COPY OF PRESCRIPTION DRUG MONITORING REPORT IN PATIENT KHADIJAH: Not Applicable Prescriptions/Med Rec: Ferrous Sulfate 325 mg PO BIDMEALS #60 tablet Polyethylene Glycol 3350 [MiraLAX] 17 gm PO DAILY PRN #1 bottle PRN Reason: Constipation Sulfamethoxazole/Trimethoprim [Bactrim Ds Tablet] 1 each PO BIDMEALS #14 tablet Home Medications: Home Meds Acetaminophen [Tylenol] 650 mg PO Q4H PRN tablet 10/16/19 [Rx] Ferrous Sulfate 325 mg PO BIDMEALS #60 tablet 10/16/19 [Rx] Polyethylene Glycol 3350 [MiraLAX] 17 gm PO DAILY PRN #1 bottle 10/16/19 [Rx] Sulfamethoxazole/Trimethoprim [Bactrim Ds Tablet] 1 each PO BIDMEALS #14 tablet 10/16/19 [Rx] Oxygen Therapy Mode: Room Air Patient Handouts: Coping with Quitting Smoking, Potassium chloride tablets, extended-release tablets or capsules, Metoprolol tablets, Ceftriaxone injection , Hypomagnesemia, Enoxaparin injection, Nicotine skin patches, Sulfamethoxazole ; Trimethoprim, SMX-TMP tablets, Urinary Tract Infection, Adult, Zewd-sy-[id number], Preventing Iron Deficiency Anemia, Adult, Health Risks of Smoking Forms: ED Department Discharge Referrals: PCP,None [Primary Care Provider] - - Discharge Summary/Plan Comment DC Time >30 min.: Yes (Coordination of care ) Discharge Summary/Plan Comment: As above. Extensive precautions were given to the patient, who is in agreement with the treatment plan. See Patient Instructions for further treatment and plan. - General Info Date of Service: 10/16/19 Admission Dx/Problem (Free Text: 1. Chest pain 2. Amphetamine abuse 3. Elevated blood pressure 4. D-dimer elevation Functional Status: Reports: Pain Controlled, Tolerating Diet, Ambulating, Urinating. Denies: New Symptoms, Incentive Spirometry Numeric/FACES Score: 0 - Review of Systems General: Reports: No Symptoms. Denies: Fever, Weakness, Fatigue, Malaise, Chills, Night Sweats, Appetite (Good) HEENT: Reports: No Symptoms. Denies: Dysphasia, Ear Pain, Eye Pain, Glasses, Post Nasal Drip, Sinus Congestion, Sore Throat, Rhinitis, Visual Changes Pulmonary: Reports: No Symptoms. Denies: Shortness of Breath, Pleuritic Chest Pain, Cough, Sputum, Hemoptysis, Wheezing Cardiovascular: Reports: No Symptoms. Denies: Chest Pain, Palpitations, Dyspnea on Exertion, Orthopnea, PND, Edema, Lightheadedness Gastrointestinal: Reports: No Symptoms. Denies: Abdominal Pain, Constipation, Decreased Appetite, Diarrhea, Difficulty Swallowing, Hematochezia, Melena, Nausea, Vomiting Genitourinary: Reports: No Symptoms. Denies: Dysuria, Frequency, Burning, Pain , Urgency, Hematuria, Retention, Flank Pain Musculoskeletal: Reports: No Symptoms. Denies: Neck Pain, Shoulder Pain, Arm Pain, Back Pain, Leg Pain Skin: Reports: No Symptoms. Denies: Diaphoresis, Bruising, Pruritis, Rash Neurological: Reports: No Symptoms. Denies: Confusion, Headache, Numbness, Paresthesia, Tingling, Weakness Psychiatric: Reports: Depression (Improved), Anxiety (Improved). Denies: Confusion, Agitation, Cravings, Hallucinations - Patient Data Vitals - Most Recent: Last Vital Signs Temp 37.1 C 10/16/19 07:20 Pulse 86 10/16/19 07:26 Resp 16 10/16/19 07:20 BP 116/71 10/16/19 07:26 Pulse Ox 96 10/16/19 07:20 Vital Signs - 24 hr 10/15/19 10/15/19 10/15/19 11:10 15:42 20:00 Temperature [ 36.7 C 37.2 C 36.8 C Temporal] Pulse, Peripheral Pulse, 75 87 79 Peripheral [ Left Pulse Oximetry] Respiratory 16 17 16 Rate Blood Pressure Blood Pressure 111/66 [Left Upper Arm ] Blood Pressure 120/78 112/66 [Right Upper Arm] O2 Sat by Pulse 96 99 96 Oximetry 10/16/19 10/16/19 07:20 07:26 Temperature [ 37.1 C Temporal] Pulse, 86 Peripheral Pulse, 86 Peripheral [ Left Pulse Oximetry] Respiratory 16 Rate Blood Pressure 116/71 Blood Pressure [Left Upper Arm ] Blood Pressure 116/71 [Right Upper Arm] O2 Sat by Pulse 96 Oximetry Weight - Most Recent: 55.61 kg I&O - Last 24 hours: Intake & Output 10/15/19 10/16/19 10/16/19 22:59 06:59 14:59 Intake Total 240 0 480 Output Total 0 Balance 240 0 480 Imaging Impressions - Last 24 hrs: separations scientist showed initial sinus tachycardia, PACs, PVCs however fine telemetry prior to discharge showed normal sinus rhythm in the 70s to 80s with no significant ectopy or arrhythmia Serial EKGs 2 showed no evidence of acute ischemic changes, however short ND interval with no delta waves noted. CTA of the chest using PE protocol on 10/13/19 showed no evidence of PE per preliminary verbal report, however final report pending Chest x-ray, portable, on 10/13/19 shows no evidence of cardiomegaly, CHF, pulmonary infiltrates, pneumothorax, etc. Lab Results - Last 24 hrs: Laboratory Results - last 24 hr 10/15/19 10/15/19 Range/Units 08:50 08:50 Specimen Type Urinblad Urine Color Yellow Urine Appearance Slightly cloudy Urine pH 7.0 (5.0-9.0) Ur Specific Ninole 1.015 (1.005-1.030) Urine Protein Negative (NEGATIVE) mg/dL Urine Glucose (UA) Negative (NEGATIVE) mg/dL Urine Ketones Negative (NEGATIVE) mg/dL Urine Occult Blood Small H (NEGATIVE) Urine Nitrite Negative (NEGATIVE) Urine Bilirubin Negative (NEGATIVE) Urine Urobilinogen 0.2 (0.2-1.0) E.U./dL Ur Leukocyte Esterase Moderate H (NEGATIVE) Urine RBC 5-10 H /HPF Urine WBC 20-30 H /HPF Ur Epithelial Cells Few /LPF Urine Bacteria Few (NONE TO FEW) /HPF Urine Opiates Screen Negative (NEGATIVE) Ur Buprenorphine Scrn Negative (NEGATIVE) Ur Oxycodone Screen Negative (NEGATIVE) Ur EDDP (Meth Metab) Negative (NEGATIVE) Ur Barbiturates Screen Negative (NEGATIVE) Ur Tricyclics Screen Negative (NEGATIVE) Ur Amphetamine Screen Positive H (NEGATIVE) U Methamphetamines Scrn Positive H (NEGATIVE) Urine MDMA Screen Positive H (NEGATIVE) U Benzodiazepines Scrn Negative (NEGATIVE) U Cocaine Metab Screen Negative (NEGATIVE) U Marijuana (THC) Screen Negative (NEGATIVE) Laboratory Tests 10/13/19 10/13/19 10/13/19 Range/Units 07:24 07:40 07:40 WBC 14.7 H (4.0-10.2) K/uL RBC 4.68 (3.77-5.09) M/uL Hgb 11.7 D (11.7-15.5) g/dL Hct 35.9 (34.0-46.0) % MCV 76.7 L D (84.0-98.0) fL MCH 25.0 L (28.2-33.3) pg MCHC 32.6 (31.7-36.0) g/dL RDW 15.0 H (11.2-14.1) % Plt Count 612 H D (150-350) K/uL Neut % (Auto) 74.6 (45.0-80.0) % Lymph % (Auto) 21.5 (10.0-50.0) % Douglas % (Auto) 3.1 (2.0-14.0) % Eos % (Auto) 0.6 (0.0-5.0) % Baso % (Auto) 0.2 (0.0-2.0) % Neut # (Auto) 10.97 H (1.40-7.00) K/uL Lymph # (Auto) 3.17 (0.50-3.50) K/uL Douglas # (Auto) 0.46 (0.00-1.00) K/uL Eos # (Auto) 0.09 (0.00-0.50) K/uL Baso # (Auto) 0.03 (0.00-0.20) K/uL PT 10.8 (9.5-12.0) SEC INR 1.0 APTT 32.0 H (21.0-31.3) SEC D-Dimer, Quantitative 773 H (0-400) ng/mL Sodium (136-145) mmol/L Potassium (3.5-5.1) mmol/L Chloride (98-107) mmol/L Carbon Dioxide (21.0-32.0) mmol/L BUN (7-18) mg/dL Creatinine (0.51-1.17) mg/dL Est Cr Clr Drug Dosing mL/min Estimated GFR (MDRD) mL/min Glucose (74-106) mg/dL Hemoglobin A1c (4.3-5.7) % Lactic Acid (0.4-2.0) mmol/L Uric Acid (2.6-7.2) mg/dL Calcium (8.5-10.1) mg/dL Magnesium (1.8-2.4) mg/dL Iron (50-175) ug/dL TIBC (250-450) ug/dL % Saturation Ferritin (8-388) ng/mL Total Bilirubin (0.2-1.0) mg/dL AST (15-37) U/L ALT (12-78) U/L Alkaline Phosphatase (46-116) IU/L Creatine Kinase (26-308) U/L Creatine Kinase Index (0.0-2.5) % CK-MB (CK-2) (0.00-3.60) ng/mL Troponin I (0.000-0.056) ng/mL NT-Pro-B Natriuret Pep (0-125) pg/mL Total Protein (6.4-8.2) g/dL Albumin (3.4-5.0) g/dL Triglycerides (30-150) mg/dL Cholesterol (100-200) mg/dL LDL Cholesterol, Calc (0-100) mg/dL HDL Cholesterol (40-60) mg/dL TSH, Ultra Sensitive (0.358-3.740) mIU/mL HCG, Qual (NEGATIVE) Specimen Type Urine Color Urine Appearance Urine pH (5.0-9.0) Ur Specific Ninole (1.005-1.030) Urine Protein (NEGATIVE) mg/dL Urine Glucose (UA) (NEGATIVE) mg/dL Urine Ketones (NEGATIVE) mg/dL Urine Occult Blood (NEGATIVE) Urine Nitrite (NEGATIVE) Urine Bilirubin (NEGATIVE) Urine Urobilinogen (0.2-1.0) E.U./dL Ur Leukocyte Esterase (NEGATIVE) Urine RBC /HPF Urine WBC /HPF Ur Epithelial Cells /LPF Urine Bacteria (NONE TO FEW) /HPF Urine Opiates Screen (NEGATIVE) Ur Buprenorphine Scrn (NEGATIVE) Ur Oxycodone Screen (NEGATIVE) Ur EDDP (Meth Metab) (NEGATIVE) Ur Barbiturates Screen (NEGATIVE) Ur Tricyclics Screen (NEGATIVE) Ur Amphetamine Screen (NEGATIVE) U Methamphetamines Scrn (NEGATIVE) Urine MDMA Screen (NEGATIVE) U Benzodiazepines Scrn (NEGATIVE) U Cocaine Metab Screen (NEGATIVE) U Marijuana (THC) Screen (NEGATIVE) Ethyl Alcohol (0.000-0.080) g/dL 10/13/19 10/13/19 10/13/19 Range/Units 07:40 07:40 07:40 WBC (4.0-10.2) K/uL RBC (3.77-5.09) M/uL Hgb (11.7-15.5) g/dL Hct (34.0-46.0) % MCV (84.0-98.0) fL MCH (28.2-33.3) pg MCHC (31.7-36.0) g/dL RDW (11.2-14.1) % Plt Count (150-350) K/uL Neut % (Auto) (45.0-80.0) % Lymph % (Auto) (10.0-50.0) % Douglas % (Auto) (2.0-14.0) % Eos % (Auto) (0.0-5.0) % Baso % (Auto) (0.0-2.0) % Neut # (Auto) (1.40-7.00) K/uL Lymph # (Auto) (0.50-3.50) K/uL Douglas # (Auto) (0.00-1.00) K/uL Eos # (Auto) (0.00-0.50) K/uL Baso # (Auto) (0.00-0.20) K/uL PT (9.5-12.0) SEC INR APTT (21.0-31.3) SEC D-Dimer, Quantitative (0-400) ng/mL Sodium 139 (136-145) mmol/L Potassium 2.8 L* (3.5-5.1) mmol/L Chloride 98 (98-107) mmol/L Carbon Dioxide 23.6 (21.0-32.0) mmol/L BUN 6 L (7-18) mg/dL Creatinine 0.61 (0.51-1.17) mg/dL Est Cr Clr Drug Dosing 99.46 mL/min Estimated GFR (MDRD) > 60 mL/min Glucose 177 H (74-106) mg/dL Hemoglobin A1c (4.3-5.7) % Lactic Acid 3.2 H (0.4-2.0) mmol/L Uric Acid 3.7 (2.6-7.2) mg/dL Calcium 9.4 (8.5-10.1) mg/dL Magnesium 1.3 L (1.8-2.4) mg/dL Iron (50-175) ug/dL TIBC (250-450) ug/dL % Saturation Ferritin (8-388) ng/mL Total Bilirubin 0.2 (0.2-1.0) mg/dL AST 11 L (15-37) U/L ALT 11 L (12-78) U/L Alkaline Phosphatase 141 H (46-116) IU/L Creatine Kinase 32 (26-308) U/L Creatine Kinase Index 0.9 (0.0-2.5) % CK-MB (CK-2) 0.30 (0.00-3.60) ng/mL Troponin I 0.000 (0.000-0.056) ng/mL NT-Pro-B Natriuret Pep 202 H (0-125) pg/mL Total Protein 8.8 H (6.4-8.2) g/dL Albumin 3.5 (3.4-5.0) g/dL Triglycerides (30-150) mg/dL Cholesterol (100-200) mg/dL LDL Cholesterol, Calc (0-100) mg/dL HDL Cholesterol (40-60) mg/dL TSH, Ultra Sensitive 0.174 L (0.358-3.740) mIU/mL HCG, Qual Negative (NEGATIVE) Specimen Type Urine Color Urine Appearance Urine pH (5.0-9.0) Ur Specific Ninole (1.005-1.030) Urine Protein (NEGATIVE) mg/dL Urine Glucose (UA) (NEGATIVE) mg/dL Urine Ketones (NEGATIVE) mg/dL Urine Occult Blood (NEGATIVE) Urine Nitrite (NEGATIVE) Urine Bilirubin (NEGATIVE) Urine Urobilinogen (0.2-1.0) E.U./dL Ur Leukocyte Esterase (NEGATIVE) Urine RBC /HPF Urine WBC /HPF Ur Epithelial Cells /LPF Urine Bacteria (NONE TO FEW) /HPF Urine Opiates Screen (NEGATIVE) Ur Buprenorphine Scrn (NEGATIVE) Ur Oxycodone Screen (NEGATIVE) Ur EDDP (Meth Metab) (NEGATIVE) Ur Barbiturates Screen (NEGATIVE) Ur Tricyclics Screen (NEGATIVE) Ur Amphetamine Screen (NEGATIVE) U Methamphetamines Scrn (NEGATIVE) Urine MDMA Screen (NEGATIVE) U Benzodiazepines Scrn (NEGATIVE) U Cocaine Metab Screen (NEGATIVE) U Marijuana (THC) Screen (NEGATIVE) Ethyl Alcohol 0.000 (0.000-0.080) g/dL 10/13/19 10/13/19 10/13/19 Range/Units 07:40 07:40 09:42 WBC (4.0-10.2) K/uL RBC (3.77-5.09) M/uL Hgb (11.7-15.5) g/dL Hct (34.0-46.0) % MCV (84.0-98.0) fL MCH (28.2-33.3) pg MCHC (31.7-36.0) g/dL RDW (11.2-14.1) % Plt Count (150-350) K/uL Neut % (Auto) (45.0-80.0) % Lymph % (Auto) (10.0-50.0) % Douglas % (Auto) (2.0-14.0) % Eos % (Auto) (0.0-5.0) % Baso % (Auto) (0.0-2.0) % Neut # (Auto) (1.40-7.00) K/uL Lymph # (Auto) (0.50-3.50) K/uL Douglas # (Auto) (0.00-1.00) K/uL Eos # (Auto) (0.00-0.50) K/uL Baso # (Auto) (0.00-0.20) K/uL PT (9.5-12.0) SEC INR APTT (21.0-31.3) SEC D-Dimer, Quantitative (0-400) ng/mL Sodium (136-145) mmol/L Potassium (3.5-5.1) mmol/L Chloride (98-107) mmol/L Carbon Dioxide (21.0-32.0) mmol/L BUN (7-18) mg/dL Creatinine (0.51-1.17) mg/dL Est Cr Clr Drug Dosing mL/min Estimated GFR (MDRD) mL/min Glucose (74-106) mg/dL Hemoglobin A1c 5.3 (4.3-5.7) % Lactic Acid (0.4-2.0) mmol/L Uric Acid (2.6-7.2) mg/dL Calcium (8.5-10.1) mg/dL Magnesium (1.8-2.4) mg/dL Iron (50-175) ug/dL TIBC (250-450) ug/dL % Saturation Ferritin (8-388) ng/mL Total Bilirubin (0.2-1.0) mg/dL AST (15-37) U/L ALT (12-78) U/L Alkaline Phosphatase (46-116) IU/L Creatine Kinase (26-308) U/L Creatine Kinase Index (0.0-2.5) % CK-MB (CK-2) (0.00-3.60) ng/mL Troponin I (0.000-0.056) ng/mL NT-Pro-B Natriuret Pep (0-125) pg/mL Total Protein (6.4-8.2) g/dL Albumin (3.4-5.0) g/dL Triglycerides 97 (30-150) mg/dL Cholesterol 202 H (100-200) mg/dL LDL Cholesterol, Calc 145 H (0-100) mg/dL HDL Cholesterol 38 L (40-60) mg/dL TSH, Ultra Sensitive (0.358-3.740) mIU/mL HCG, Qual (NEGATIVE) Specimen Type Urincc Urine Color Yellow Urine Appearance Cloudy Urine pH 7.0 (5.0-9.0) Ur Specific [place] 1.015 (1.005-1.030) Urine Protein 30 H (NEGATIVE) mg/dL Urine Glucose (UA) Negative (NEGATIVE) mg/dL Urine Ketones Negative (NEGATIVE) mg/dL Urine Occult Blood Moderate H (NEGATIVE) Urine Nitrite Positive H (NEGATIVE) Urine Bilirubin Negative (NEGATIVE) Urine Urobilinogen 0.2 (0.2-1.0) E.U./dL Ur Leukocyte Esterase Large H (NEGATIVE) Urine RBC 5-10 H /HPF Urine WBC Semi-packed /HPF Ur Epithelial Cells Few /LPF Urine Bacteria Many H (NONE TO FEW) /HPF Urine Opiates Screen (NEGATIVE) Ur Buprenorphine Scrn (NEGATIVE) Ur Oxycodone Screen (NEGATIVE) Ur EDDP (Meth Metab) (NEGATIVE) Ur Barbiturates Screen (NEGATIVE) Ur Tricyclics Screen (NEGATIVE) Ur Amphetamine Screen (NEGATIVE) U Methamphetamines Scrn (NEGATIVE) Urine MDMA Screen (NEGATIVE) U Benzodiazepines Scrn (NEGATIVE) U Cocaine Metab Screen (NEGATIVE) U Marijuana (THC) Screen (NEGATIVE) Ethyl Alcohol (0.000-0.080) g/dL 10/13/19 10/13/19 10/14/19 Range/Units 09:42 16:50 07:20 WBC (4.0-10.2) K/uL RBC (3.77-5.09) M/uL Hgb (11.7-15.5) g/dL Hct (34.0-46.0) % MCV (84.0-98.0) fL MCH (28.2-33.3) pg MCHC (31.7-36.0) g/dL RDW (11.2-14.1) % Plt Count (150-350) K/uL Neut % (Auto) (45.0-80.0) % Lymph % (Auto) (10.0-50.0) % Douglas % (Auto) (2.0-14.0) % Eos % (Auto) (0.0-5.0) % Baso % (Auto) (0.0-2.0) % Neut # (Auto) (1.40-7.00) K/uL Lymph # (Auto) (0.50-3.50) K/uL Douglas # (Auto) (0.00-1.00) K/uL Eos # (Auto) (0.00-0.50) K/uL Baso # (Auto) (0.00-0.20) K/uL PT (9.5-12.0) SEC INR APTT (21.0-31.3) SEC D-Dimer, Quantitative (0-400) ng/mL Sodium 142 141 (136-145) mmol/L Potassium 3.7 3.8 (3.5-5.1) mmol/L Chloride 104 102 (98-107) mmol/L Carbon Dioxide 27.5 25.6 (21.0-32.0) mmol/L BUN 4 L 3 L (7-18) mg/dL Creatinine 0.57 0.64 (0.51-1.17) mg/dL Est Cr Clr Drug Dosing 116.69 103.93 mL/min Estimated GFR (MDRD) > 60 > 60 mL/min Glucose 113 H 87 (74-106) mg/dL Hemoglobin A1c (4.3-5.7) % Lactic Acid (0.4-2.0) mmol/L Uric Acid (2.6-7.2) mg/dL Calcium 8.1 L 8.9 (8.5-10.1) mg/dL Magnesium 2.9 H 2.2 (1.8-2.4) mg/dL Iron (50-175) ug/dL TIBC (250-450) ug/dL % Saturation Ferritin (8-388) ng/mL Total Bilirubin 0.1 L (0.2-1.0) mg/dL AST 13 L (15-37) U/L ALT 11 L (12-78) U/L Alkaline Phosphatase 132 H (46-116) IU/L Creatine Kinase (26-308) U/L Creatine Kinase Index (0.0-2.5) % CK-MB (CK-2) (0.00-3.60) ng/mL Troponin I 0.000 (0.000-0.056) ng/mL NT-Pro-B Natriuret Pep (0-125) pg/mL Total Protein 7.6 (6.4-8.2) g/dL Albumin 3.0 L (3.4-5.0) g/dL Triglycerides (30-150) mg/dL Cholesterol (100-200) mg/dL LDL Cholesterol, Calc (0-100) mg/dL HDL Cholesterol (40-60) mg/dL TSH, Ultra Sensitive (0.358-3.740) mIU/mL HCG, Qual (NEGATIVE) Specimen Type Urine Color Urine Appearance Urine pH (5.0-9.0) Ur Specific [place] (1.005-1.030) Urine Protein (NEGATIVE) mg/dL Urine Glucose (UA) (NEGATIVE) mg/dL Urine Ketones (NEGATIVE) mg/dL Urine Occult Blood (NEGATIVE) Urine Nitrite (NEGATIVE) Urine Bilirubin (NEGATIVE) Urine Urobilinogen (0.2-1.0) E.U./dL Ur Leukocyte Esterase (NEGATIVE) Urine RBC /HPF Urine WBC /HPF Ur Epithelial Cells /LPF Urine Bacteria (NONE TO FEW) /HPF Urine Opiates Screen Positive H (NEGATIVE) Ur Buprenorphine Scrn Negative (NEGATIVE) Ur Oxycodone Screen Negative (NEGATIVE) Ur EDDP (Meth Metab) Negative (NEGATIVE) Ur Barbiturates Screen Negative (NEGATIVE) Ur Tricyclics Screen Negative (NEGATIVE) Ur Amphetamine Screen Positive H (NEGATIVE) U Methamphetamines Scrn Positive H (NEGATIVE) Urine MDMA Screen Negative (NEGATIVE) U Benzodiazepines Scrn Negative (NEGATIVE) U Cocaine Metab Screen Negative (NEGATIVE) U Marijuana (THC) Screen Negative (NEGATIVE) Ethyl Alcohol (0.000-0.080) g/dL 10/14/19 10/14/19 10/15/19 Range/Units 07:20 07:20 07:02 WBC 9.5 9.9 (4.0-10.2) K/uL RBC 4.52 4.71 (3.77-5.09) M/uL Hgb 11.3 L 11.6 L (11.7-15.5) g/dL Hct 35.2 36.3 (34.0-46.0) % MCV 77.9 L 77.1 L (84.0-98.0) fL MCH 25.0 L 24.6 L (28.2-33.3) pg MCHC 32.1 32.0 (31.7-36.0) g/dL RDW 15.3 H 15.5 H (11.2-14.1) % Plt Count 656 H 682 H (150-350) K/uL Neut % (Auto) 63.5 57.2 (45.0-80.0) % Lymph % (Auto) 30.4 32.7 (10.0-50.0) % Douglas % (Auto) 4.3 6.1 (2.0-14.0) % Eos % (Auto) 1.7 3.7 (0.0-5.0) % Baso % (Auto) 0.1 0.3 (0.0-2.0) % Neut # (Auto) 6.05 5.65 (1.40-7.00) K/uL Lymph # (Auto) 2.89 3.22 (0.50-3.50) K/uL Douglas # (Auto) 0.41 0.60 (0.00-1.00) K/uL Eos # (Auto) 0.16 0.36 (0.00-0.50) K/uL Baso # (Auto) 0.01 0.03 (0.00-0.20) K/uL PT (9.5-12.0) SEC INR APTT (21.0-31.3) SEC D-Dimer, Quantitative (0-400) ng/mL Sodium (136-145) mmol/L Potassium (3.5-5.1) mmol/L Chloride (98-107) mmol/L Carbon Dioxide (21.0-32.0) mmol/L BUN (7-18) mg/dL Creatinine (0.51-1.17) mg/dL Est Cr Clr Drug Dosing mL/min Estimated GFR (MDRD) mL/min Glucose (74-106) mg/dL Hemoglobin A1c (4.3-5.7) % Lactic Acid 4.9 H (0.4-2.0) mmol/L Uric Acid (2.6-7.2) mg/dL Calcium (8.5-10.1) mg/dL Magnesium (1.8-2.4) mg/dL Iron (50-175) ug/dL TIBC (250-450) ug/dL % Saturation Ferritin (8-388) ng/mL Total Bilirubin (0.2-1.0) mg/dL AST (15-37) U/L ALT (12-78) U/L Alkaline Phosphatase (46-116) IU/L Creatine Kinase (26-308) U/L Creatine Kinase Index (0.0-2.5) % CK-MB (CK-2) (0.00-3.60) ng/mL Troponin I (0.000-0.056) ng/mL NT-Pro-B Natriuret Pep (0-125) pg/mL Total Protein (6.4-8.2) g/dL Albumin (3.4-5.0) g/dL Triglycerides (30-150) mg/dL Cholesterol (100-200) mg/dL LDL Cholesterol, Calc (0-100) mg/dL HDL Cholesterol (40-60) mg/dL TSH, Ultra Sensitive (0.358-3.740) mIU/mL HCG, Qual (NEGATIVE) Specimen Type Urine Color Urine Appearance Urine pH (5.0-9.0) Ur Specific [place] (1.005-1.030) Urine Protein (NEGATIVE) mg/dL Urine Glucose (UA) (NEGATIVE) mg/dL Urine Ketones (NEGATIVE) mg/dL Urine Occult Blood (NEGATIVE) Urine Nitrite (NEGATIVE) Urine Bilirubin (NEGATIVE) Urine Urobilinogen (0.2-1.0) E.U./dL Ur Leukocyte Esterase (NEGATIVE) Urine RBC /HPF Urine WBC /HPF Ur Epithelial Cells /LPF Urine Bacteria (NONE TO FEW) /HPF Urine Opiates Screen (NEGATIVE) Ur Buprenorphine Scrn (NEGATIVE) Ur Oxycodone Screen (NEGATIVE) Ur EDDP (Meth Metab) (NEGATIVE) Ur Barbiturates Screen (NEGATIVE) Ur Tricyclics Screen (NEGATIVE) Ur Amphetamine Screen (NEGATIVE) U Methamphetamines Scrn (NEGATIVE) Urine MDMA Screen (NEGATIVE) U Benzodiazepines Scrn (NEGATIVE) U Cocaine Metab Screen (NEGATIVE) U Marijuana (THC) Screen (NEGATIVE) Ethyl Alcohol (0.000-0.080) g/dL 10/15/19 10/15/19 10/15/19 Range/Units 07:02 07:02 07:02 WBC (4.0-10.2) K/uL RBC (3.77-5.09) M/uL Hgb (11.7-15.5) g/dL Hct (34.0-46.0) % MCV (84.0-98.0) fL MCH (28.2-33.3) pg MCHC (31.7-36.0) g/dL RDW (11.2-14.1) % Plt Count (150-350) K/uL Neut % (Auto) (45.0-80.0) % Lymph % (Auto) (10.0-50.0) % Douglas % (Auto) (2.0-14.0) % Eos % (Auto) (0.0-5.0) % Baso % (Auto) (0.0-2.0) % Neut # (Auto) (1.40-7.00) K/uL Lymph # (Auto) (0.50-3.50) K/uL Douglas # (Auto) (0.00-1.00) K/uL Eos # (Auto) (0.00-0.50) K/uL Baso # (Auto) (0.00-0.20) K/uL PT (9.5-12.0) SEC INR APTT (21.0-31.3) SEC D-Dimer, Quantitative (0-400) ng/mL Sodium 139 (136-145) mmol/L Potassium 4.7 (3.5-5.1) mmol/L Chloride 104 (98-107) mmol/L Carbon Dioxide 26.0 (21.0-32.0) mmol/L BUN 5 L (7-18) mg/dL Creatinine 0.79 (0.51-1.17) mg/dL Est Cr Clr Drug Dosing 84.19 mL/min Estimated GFR (MDRD) > 60 mL/min Glucose 108 H (74-106) mg/dL Hemoglobin A1c (4.3-5.7) % Lactic Acid 1.1 (0.4-2.0) mmol/L Uric Acid (2.6-7.2) mg/dL Calcium 9.0 (8.5-10.1) mg/dL Magnesium (1.8-2.4) mg/dL Iron (50-175) ug/dL TIBC (250-450) ug/dL % Saturation Ferritin (8-388) ng/mL Total Bilirubin (0.2-1.0) mg/dL AST (15-37) U/L ALT (12-78) U/L Alkaline Phosphatase (46-116) IU/L Creatine Kinase (26-308) U/L Creatine Kinase Index (0.0-2.5) % CK-MB (CK-2) (0.00-3.60) ng/mL Troponin I (0.000-0.056) ng/mL NT-Pro-B Natriuret Pep (0-125) pg/mL Total Protein (6.4-8.2) g/dL Albumin (3.4-5.0) g/dL Triglycerides (30-150) mg/dL Cholesterol (100-200) mg/dL LDL Cholesterol, Calc (0-100) mg/dL HDL Cholesterol (40-60) mg/dL TSH, Ultra Sensitive (0.358-3.740) mIU/mL HCG, Qual (NEGATIVE) Specimen Type Urine Color Urine Appearance Urine pH (5.0-9.0) Ur Specific [place] (1.005-1.030) Urine Protein (NEGATIVE) mg/dL Urine Glucose (UA) (NEGATIVE) mg/dL Urine Ketones (NEGATIVE) mg/dL Urine Occult Blood (NEGATIVE) Urine Nitrite (NEGATIVE) Urine Bilirubin (NEGATIVE) Urine Urobilinogen (0.2-1.0) E.U./dL Ur Leukocyte Esterase (NEGATIVE) Urine RBC /HPF Urine WBC /HPF Ur Epithelial Cells /LPF Urine Bacteria (NONE TO FEW) /HPF Urine Opiates Screen (NEGATIVE) Ur Buprenorphine Scrn (NEGATIVE) Ur Oxycodone Screen (NEGATIVE) Ur EDDP (Meth Metab) (NEGATIVE) Ur Barbiturates Screen (NEGATIVE) Ur Tricyclics Screen (NEGATIVE) Ur Amphetamine Screen (NEGATIVE) U Methamphetamines Scrn (NEGATIVE) Urine MDMA Screen (NEGATIVE) U Benzodiazepines Scrn (NEGATIVE) U Cocaine Metab Screen (NEGATIVE) U Marijuana (THC) Screen (NEGATIVE) Ethyl Alcohol 0.001 (0.000-0.080) g/dL 10/15/19 10/15/19 10/15/19 Range/Units 07:02 08:50 08:50 WBC (4.0-10.2) K/uL RBC (3.77-5.09) M/uL Hgb (11.7-15.5) g/dL Hct (34.0-46.0) % MCV (84.0-98.0) fL MCH (28.2-33.3) pg MCHC (31.7-36.0) g/dL RDW (11.2-14.1) % Plt Count (150-350) K/uL Neut % (Auto) (45.0-80.0) % Lymph % (Auto) (10.0-50.0) % Douglas % (Auto) (2.0-14.0) % Eos % (Auto) (0.0-5.0) % Baso % (Auto) (0.0-2.0) % Neut # (Auto) (1.40-7.00) K/uL Lymph # (Auto) (0.50-3.50) K/uL Douglas # (Auto) (0.00-1.00) K/uL Eos # (Auto) (0.00-0.50) K/uL Baso # (Auto) (0.00-0.20) K/uL PT (9.5-12.0) SEC INR APTT (21.0-31.3) SEC D-Dimer, Quantitative (0-400) ng/mL Sodium (136-145) mmol/L Potassium (3.5-5.1) mmol/L Chloride (98-107) mmol/L Carbon Dioxide (21.0-32.0) mmol/L BUN (7-18) mg/dL Creatinine (0.51-1.17) mg/dL Est Cr Clr Drug Dosing mL/min Estimated GFR (MDRD) mL/min Glucose (74-106) mg/dL Hemoglobin A1c (4.3-5.7) % Lactic Acid (0.4-2.0) mmol/L Uric Acid (2.6-7.2) mg/dL Calcium (8.5-10.1) mg/dL Magnesium (1.8-2.4) mg/dL Iron 27 L (50-175) ug/dL TIBC 247 L (250-450) ug/dL % Saturation [id number] Ferritin 27 (8-388) ng/mL Total Bilirubin (0.2-1.0) mg/dL AST (15-37) U/L ALT (12-78) U/L Alkaline Phosphatase (46-116) IU/L Creatine Kinase (26-308) U/L Creatine Kinase Index (0.0-2.5) % CK-MB (CK-2) (0.00-3.60) ng/mL Troponin I (0.000-0.056) ng/mL NT-Pro-B Natriuret Pep (0-125) pg/mL Total Protein (6.4-8.2) g/dL Albumin (3.4-5.0) g/dL Triglycerides (30-150) mg/dL Cholesterol (100-200) mg/dL LDL Cholesterol, Calc (0-100) mg/dL HDL Cholesterol (40-60) mg/dL TSH, Ultra Sensitive (0.358-3.740) mIU/mL HCG, Qual (NEGATIVE) Specimen Type Urinblad Urine Color Yellow Urine Appearance Slightly cloudy Urine pH 7.0 (5.0-9.0) Ur Specific [place] 1.015 (1.005-1.030) Urine Protein Negative (NEGATIVE) mg/dL Urine Glucose (UA) Negative (NEGATIVE) mg/dL Urine Ketones Negative (NEGATIVE) mg/dL Urine Occult Blood Small H (NEGATIVE) Urine Nitrite Negative (NEGATIVE) Urine Bilirubin Negative (NEGATIVE) Urine Urobilinogen 0.2 (0.2-1.0) E.U./dL Ur Leukocyte Esterase Moderate H (NEGATIVE) Urine RBC 5-10 H /HPF Urine WBC 20-30 H /HPF Ur Epithelial Cells Few /LPF Urine Bacteria Few (NONE TO FEW) /HPF Urine Opiates Screen Negative (NEGATIVE) Ur Buprenorphine Scrn Negative (NEGATIVE) Ur Oxycodone Screen Negative (NEGATIVE) Ur EDDP (Meth Metab) Negative (NEGATIVE) Ur Barbiturates Screen Negative (NEGATIVE) Ur Tricyclics Screen Negative (NEGATIVE) Ur Amphetamine Screen Positive H (NEGATIVE) U Methamphetamines Scrn Positive H (NEGATIVE) Urine MDMA Screen Positive H (NEGATIVE) U Benzodiazepines Scrn Negative (NEGATIVE) U Cocaine Metab Screen Negative (NEGATIVE) U Marijuana (THC) Screen Negative (NEGATIVE) Ethyl Alcohol (0.000-0.080) g/dL SHANAE Results - Last 24 hrs: UA culture and sensitivity showed contaminated specimen. Med Orders - Current: Current Medications Acetaminophen (Tylenol) 650 mg PO Q4H PRN PRN Reason: Pain (Mild 1-3)/fever Last Admin: 10/14/19 17:10 Dose: 650 mg Enoxaparin Sodium (Lovenox) 40 mg SUBCUT DAILY [facility] Last Admin: 10/16/19 07:25 Dose: 40 mg Ceftriaxone Sodium 1 gm/ (Sodium Chloride) 100 mls @ 200 mls/hr IV DAILY [facility] Last Admin: 10/16/19 07:22 Dose: 200 mls/hr Lorazepam (Ativan) 1 mg IV Q6H PRN PRN Reason: Nausea/Vomiting Last Admin: 10/13/19 12:06 Dose: 1 mg Magnesium Oxide (Magnesium Oxide) 400 mg PO DAILY [facility] Last Admin: 10/16/19 07:27 Dose: 400 mg Metoprolol Succinate (Toprol Xl) 25 mg PO DAILY [facility] Last Admin: 10/16/19 07:26 Dose: 25 mg Miscellaneous Information (Remove Patch) 1 ea TRDERM DAILY [facility] Last Admin: 10/16/19 07:30 Dose: 1 ea Nicotine (Habitrol) 21 mg TRDERM DAILY [facility] Last Admin: 10/16/19 07:27 Dose: 21 mg Ondansetron HCl (Zofran) 4 mg IVPUSH Q6H PRN PRN Reason: Nausea/Vomiting Potassium Chloride (Klor-Con 10) 10 meq PO DAILY [facility] Last Admin: 10/16/19 07:26 Dose: 10 meq Sodium Chloride (Saline Flush) 10 ml FLUSH ASDIRECTED PRN PRN Reason: Keep Vein Open Last Admin: 10/16/19 08:14 Dose: 10 ml Trimethoprim/Sulfamethoxazole (Septra Ds) 1 tab PO BID [facility] Last Admin: 10/16/19 07:26 Dose: 1 tab Discontinued Medications Aspirin (Aspirin) 324 mg CHEW ONETIME ONE Stop: 10/13/19 07:23 Last Admin: 10/13/19 07:30 Dose: 324 mg Famotidine (Pepcid) 40 mg IVPUSH ONETIME ONE Stop: 10/13/19 07:23 Last Admin: 10/13/19 07:39 Dose: 40 mg Ceftriaxone Sodium 1 gm/ (Sodium Chloride) 100 mls @ 200 mls/hr IV ONETIME ONE Stop: 10/13/19 08:49 Last Admin: 10/13/19 08:29 Dose: 200 mls/hr Magnesium Sulfate 2 gm/ Premix 50 mls @ 50 mls/hr IV ONETIME ONE Stop: 10/13/19 09:19 Last Admin: 10/13/19 09:06 Dose: 50 mls/hr Magnesium Sulfate/Dextrose 1 (gm/ Premix) 100 mls @ 100 mls/hr IV ONETIME ONE Stop: 10/13/19 11:59 Last Admin: 10/13/19 10:25 Dose: 100 mls/hr Magnesium Sulfate/Dextrose 1 (gm/ Premix) 100 mls @ 100 mls/hr IV ONETIME ONE Stop: 10/13/19 14:59 Last Admin: 10/13/19 14:58 Dose: 100 mls/hr Sodium Chloride (Normal Saline) 1,000 mls @ 125 mls/hr IV ASDIRECTED TRAVIS Stop: 10/14/19 00:36 Last Admin: 10/13/19 10:25 Dose: 125 mls/hr Sodium Chloride (Normal Saline) 1,000 mls @ 999 mls/hr IV .BOLUS ONE Stop: 10/13/19 20:25 Last Admin: 10/13/19 20:07 Dose: 999 mls/hr Sodium Chloride (Normal Saline) 1,000 mls @ 200 mls/hr IV BOLUS ONE Stop: 10/14/19 18:11 Last Admin: 10/14/19 13:28 Dose: 200 mls/hr Iopamidol (Isovue-370 (76%)) 100 ml IVPUSH ONETIME STA Stop: 10/13/19 08:34 Last Admin: 10/13/19 09:06 Dose: 100 ml Lorazepam (Ativan) 0.5 mg IVPUSH ONETIME ONE Stop: 10/13/19 07:24 Last Admin: 10/13/19 07:31 Dose: 0.5 mg Magnesium Citrate (Citrate Of Magnesia) 0 ml PO ONETIME ONE Stop: 10/13/19 08:23 Last Admin: 10/13/19 08:29 Dose: 296 ml Morphine Sulfate (Morphine) 2 mg IVPUSH ONETIME ONE Stop: 10/13/19 08:01 Last Admin: 10/13/19 08:03 Dose: 2 mg Nitroglycerin (Nitrostat) 0.4 mg SL ONETIME STA Stop: 10/14/19 07:24 Last Admin: 10/13/19 07:30 Dose: 0.4 mg Ondansetron HCl (Zofran) 4 mg IVPUSH ONETIME ONE Stop: 10/13/19 08:01 Last Admin: 10/13/19 08:03 Dose: 4 mg Polyethylene Glycol (Miralax) 17 gm PO ONETIME ONE Stop: 10/13/19 08:23 Last Admin: 10/13/19 08:30 Dose: 17 gm Potassium Chloride (Klor-Con M20) 40 meq PO ONETIME ONE Stop: 10/13/19 08:22 Last Admin: 10/13/19 08:29 Dose: 40 meq Potassium Chloride (Klor-Con M20) 40 meq PO ONETIME ONE Stop: 10/13/19 10:31 Last Admin: 10/13/19 10:24 Dose: 40 meq Potassium Chloride (Klor-Con M20) 40 meq PO ONETIME ONE Stop: 10/13/19 15:01 Last Admin: 10/13/19 14:59 Dose: 40 meq Ticagrelor (Brilinta) 180 mg PO ONETIME ONE Stop: 10/13/19 07:23 Last Admin: 10/13/19 07:31 Dose: 180 mg - Exam Quality Assessment: Reports: DVT Prophylaxis (Lovenox). Denies: Supplemental Oxygen, Central Line/PICC, Urine Catheter, Skin Breakdown, Restraints General: Reports: Alert, Oriented, Cooperative, No Acute Distress HEENT: Reports: Pupils Equal, Pupils Reactive, EOMI, Mucous Membr. Moist/[employer] [place]: Reports: Supple, Trachea Midline, No JVD, No Thyromegaly, +2 Carotid Pulse wo Bruit. Denies: Lymphadenopathy Lungs: Reports: Clear to Auscultation, Normal Respiratory Effort. Denies: Rub, Stridor Cardiovascular: Reports: Regular Rate, Regular Rhythm, No Murmurs. Denies: Gallops, Rubs GI/Abdominal Exam: Normal Bowel Sounds, Soft, Non-Tender, No Organomegaly, No Distention, No Abnormal Bruit, No Mass. No: Guarding (Female) Exam: Deferred Rectal (Female) Exam: Deferred Back Exam: Reports: Normal Inspection, Full Range of Motion. Denies: CVA Tenderness (L), CVA Tenderness (R), Muscle Spasm Extremities: Normal Inspection, Normal Range of Motion, Non-Tender, No Pedal Edema, Normal Capillary Refill. No: Pedal Edema Skin: Reports: Warm, Dry, Intact. Denies: Rash, Ecchymosis Neurological: Reports: No New Focal Deficit, Other (Negative Babinski's) Psy/Mental Status: Reports: Anxious (Mild), Depressed (Mild to moderate). Denies: Agitated, Suicidal Ideation, Homicidal Ideation, Hallucinations, Withdrawal Symptoms
== END 2019-10-16 12:15 | disposition home or self-care (01) | DRG 880 ==
LOC: LL.ED 07:06 → UNDOADMOB 08:19 → LL.MS 08:19 → OBSVTOIN 10-14 09:30
PROVIDERS: ADMIT Family Medicine; ATTEND Emergency Medicine
DX: F41.8 Other specified anxiety disorders (principal); N12 Tubulo-interstitial nephritis, not specified as acute or chronic; N39.0 Urinary tract infection, site not specified; F15.10 Other stimulant abuse, uncomplicated; M15.0 Primary generalized (osteo)arthritis; I49.1 Atrial premature depolarization; I49.3 Ventricular premature depolarization; K59.01 Slow transit constipation; E87.6 Hypokalemia; R79.89 Other specified abnormal findings of blood chemistry; R03.0 Elevated blood-pressure reading, without diagnosis of hypertension; E83.42 Hypomagnesemia; D50.9 Iron deficiency anemia, unspecified; E88.09 Other disorders of plasma-protein metabolism, not elsewhere classified; F17.210 Nicotine dependence, cigarettes, uncomplicated; Z71.6 Tobacco abuse counseling; Z90.49 Acquired absence of other specified parts of digestive tract; Z98.890 Other specified postprocedural states
CPT/HCPCS: 36415; 71045; 71275; 80048; 80053; 80061; 80305-QW; 81001; 82550; 82553; 82728; 83036; 83540; 83550; 83605; 83735; 83880; 84443; 84484; 84550; 84703; 85025; 85379; 85610; 85730; 87086; 93005; 96361; 96365; 96366; 96367; 96372; 96375; 96376; 99285-25; A9270-GY; G0378; G0480; J0696; J1650; J2060; J2270; J2405; J3475; J3490; J7030; J7050; Q9967

== ENCOUNTER 2020-01-05 13:39 | Emergency (ER) | payer SELFPAY ==
[2020-01-05 14:21] LABS: CHLORIDE,CL 104 mmol/L (98-107); SODIUM,NA 140 mmol/L (136-145)
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
== END 2020-01-05 15:38 ==
LOC: LL.ED 13:39
DX: S06.6X9A Traumatic subarachnoid hemorrhage with loss of consciousness of unspecified duration, initial encounter (principal); V89.2XXA Person injured in unspecified motor-vehicle accident, traffic, initial encounter
CPT/HCPCS: 36415; 70450; 72125; 80053; 84703; 85025; 99285-25